=== PATIENT | male | born 1945 | race Caucasian/White ===

== ENCOUNTER 2019-03-07 06:00 | Outpatient (RCR) | payer MEDICARE, MEDICAID, SELFPAY | END 2019-04-06 00:01 | LOC: PULRHB 06:00 | PROVIDERS: Family Provider Family Medicine; Visit Provider Family Medicine | DX: J44.0 Chronic obstructive pulmonary disease with (acute) lower respiratory infection (principal); J20.9 Acute bronchitis, unspecified | CPT/HCPCS: G0424 ×9 ==

== ENCOUNTER 2019-04-07 06:00 | Outpatient (RCR) | payer MEDICARE, MEDICAID, SELFPAY | END 2019-05-07 23:59 | disposition home or self-care (01) | LOC: PULRHB 06:00 | PROVIDERS: Family Provider Family Medicine; Visit Provider Family Medicine | DX: J44.9 Chronic obstructive pulmonary disease, unspecified (principal) | CPT/HCPCS: G0424 ==

== ENCOUNTER 2019-04-30 13:56 | Emergency (ER) | payer MEDICARE, MEDICAID, SELFPAY ==
[2019-04-30 14:08] VITALS: BP 135/72; PULSE 87; RESP 20; TEMP 36.3; O2SAT 91; BMI 22.7
--- NOTE | 2019-04-30 15:12 | XRR_ITS ---
PROCEDURE INFORMATION: Exam: XR Lumbosacral Spine, 2 or 3 Views Exam date and time: 04/30/2019 3:43 PM Age: 74 years old Clinical indication: Injury or trauma; Fall; Initial encounter; Blunt trauma (contusions or hematomas); Injury date: This am; Additional info: Fall, multiple TECHNIQUE: Imaging protocol: XR of the lumbosacral spine, 2 or 3 views. COMPARISON: No relevant prior studies available. FINDINGS: Vertebrae: There is age indeterminate fracture of L1 involving the superior endplate. No retropulsed bone. Marked disc space narrowing and severe endplate degenerative changes are noted at L5-S1. There is a vacuum disc. Severe facet degenerative changes are noted in the lower lumbar spine. No subluxation. Soft tissues: Normal. XR/XR lumbar spine 2-3V* [id number] IMPRESSION: There is age indeterminate fracture of L1 involving the superior endplate. No retropulsed bone. CT scan may be helpful for further characterization.
--- NOTE | 2019-04-30 15:12 | XRR_ITS ---
PROCEDURE INFORMATION: Exam: XR Chest, 2 Views Exam date and time: 04/30/2019 3:41 PM Age: 74 years old Clinical indication: Shortness of breath; Additional info: SOB, copd TECHNIQUE: Imaging protocol: XR of the chest Views: 2 views. COMPARISON: CR Chest 1 [place] [id number] 03/06/2016 8:19 PM FINDINGS: Lungs: Unremarkable. No consolidation. The lungs are hyperinflated. Scattered punctate calcified granulomas are noted. Pleural space: Unremarkable. No pleural effusion. No pneumothorax. Heart/Mediastinum: Unremarkable. No cardiomegaly. Bones/joints: Unremarkable. Osteopenia and degenerative changes in the spine are noted. XR/XR chest 2V* [id number] IMPRESSION: No acute findings.
--- NOTE | 2019-04-30 15:13 | ECG_ITS ---
Measurements Intervals [place] Rate: 101 P: 81 VA: 158 QRS: 97 QRSD: 137 T: 86 QT: 355 QTc: 461 SINUS TACHYCARDIA WITH OCCASIONAL SUPRAVENTRICULAR PREMATURE COMPLEXES RIGHT BUNDLE BRANCH BLOCK [120+ ms QRS DURATION, UPRIGHT V1, 40+ ms S IN I/aVL/V4/V5/V6] INTERPRETATION BASED ON A DEFAULT AGE OF 40 YEARS Compared to ECG 03/06/2016 19:56:57 Indeterminate axis no longer present Electronically Signed On 04-30-2019 15:35:45 [employer] by Alivia Landaverde M.D. [email or web address]
--- NOTE | 2019-04-30 15:17 | CTR_ITS ---
PROCEDURE INFORMATION: Exam: CT Head Without Contrast Exam date and time: 04/30/2019 3:40 PM Age: 74 years old Clinical indication: Injury or trauma; Patient HX: Fall this a. M. Denies any blow to head or loc. ; Additional info: Falls TECHNIQUE: Imaging protocol: Computed tomography of the head without contrast. Total DLP: 780.27 mGy-cm Radiation optimization: All CT scans at this facility use at least one of these dose optimization techniques: automated exposure control; mA and/or kV adjustment per patient size (includes targeted exams where dose is matched to clinical indication); or iterative reconstruction. COMPARISON: [place] [id number] 03/05/2018 9:33 AM FINDINGS: Brain: There is diffuse volume loss and periventricular low-density compatible with small-vessel disease changes. No acute hemorrhage, edema or mass effect. Stable [id number] vascular calcifications at the skull base. Ventricles: Normal. No ventriculomegaly. Bones/joints: Unremarkable. No acute fracture. Sinuses: Mild mucosal thickening is noted in the sinuses. No air-fluid levels. Mastoid air cells: Visualized mastoid air cells are well aerated. Soft tissues: Unremarkable. CT/CT head wo con* [id number] IMPRESSION: No acute abnormality is identified. Radiation Dose CTDIVOL = (mGy): DLP = 780.27 (mGy-cm)
--- NOTE | 2019-04-30 15:17 | W.ED.FALL ---
Documented by User: SHAYNE Michael 04/30/19 17:08 HPI - Fall General: Chief Complaint: Fall Stated Complaint: fall Time Seen by Provider: 04/30/19 15:05 Source: patient Mode of arrival: ambulatory Limitations: no limitations History of Present Illness: HPI Narrative: Patient comes in today for complaints of 3 falls this morning. Patient reports getting up to go to the bathroom and became lightheaded and fell. Patient then was walking on the hallway and got lightheaded again and fell. Patient then mated to the bathroom and fell again. Patient has an area of bruising to his right forearm. No obvious abrasions or skin tears. Patient does report some low back pain. Patient states that when he fell he fell down directly on his buttocks. Patient denies any chest pain, more than usual shortness of breath. Patient does states he has felt bad the last 2 days and a little weaker than normal. Review of Systems General: Reports: 10 or more systems reviewed and unremarkable except in HPI and below Musc: Reports: back pain (low) Skin/Breast: Reports: changes in skin color (bruising to right forearm) Neuro: Reports: weakness in extremities PFSH ED PFSH: Statuses (acute, chronic, etc) shown below reflect problem list status as previously entered and may not be historically accurate Medical History (Updated 04/30/19 @ 21:14 by SULY Bernabe) COPD (chronic obstructive pulmonary disease) (Acute) Dyspnea (Acute) Hypoxia (Acute) Surgical History (Updated 04/21/19 @ 09:24 by Abi Sharma MD) H/O foot surgery (Acute) H/O rotator cuff surgery (Acute) Social History Smoking and tobacco status: current every day smoker cigarettes Years cigarettes smoked: 60 Alcohol intake: never Lives independently: Yes Current occupational status: retired History of recent travel: No Current gender identity: Male Physical Exam Const: COMMON NORMALS: no apparent distress and oriented x3 GENERAL APPEARANCE: cooperative HENMT: COMMON NORMALS: normocephalic, external ears normal, EAC's normal, TM's normal bilaterally and external nose normal HEAD & SCALP: normal to inspection and normocephalic FACE & SINUS: normal facial exam NOSE: external nose normal GENERAL EAR: hearing not grossly impaired EXTERNAL EAR: Yes external ears normal EXTERNAL AUDITORY CANAL: EAC's normal TYMPANIC MEMBRANE: TM's normal bilaterally MOUTH: oral and palatal mucosa normal THROAT: posterior oropharynx normal Eye: COMMON NORMALS: PERRL and EOMs intact bilaterally PUPIL: Yes PERRL Neck/C-Spine: COMMON NORMALS: full ROM and no lymphadenopathy Lymph: LYMPHATIC: no lymphedema noted Chest: COMMONS NORMALS: inspection of chest normal and palpation of chest normal Resp: COMMON NORMALS: normal respiratory effort and clear to auscultation bilaterally AUSCULTATION: clear to auscultation bilaterally Cardio: COMMON NORMALS: regular rate and regular rhythm RATE: regular rate RHYTHM: regular rhythm GI: COMMON NORMALS: normal to inspection, nondistended, normoactive bowel sounds and non-tender : COMMON NORMALS: Yes no CVA tenderness BLADDER/KIDNEY EXAM: Yes no CVA tenderness Back/Pelvis: COMMON NORMALS: no CVA tenderness LUMBAR SPINE/LOWER BACK: Yes paraspinal muscle tenderness Extremity: COMMON NORMALS: normal to inspection GENERAL: No edema RIGHT UPPER EXTREMITY: Yes lower arm (contusion) Neuro: COMMON NORMALS: oriented x3, moves all extremities and no focal motor deficits Psych: COMMON NORMALS: mental status grossly normal and cooperative Skin: COMMON NORMALS: no rashes or lesions noted GENERAL SKIN EXAM: no rashes or lesions noted Course ED course: 1699, reviewed with Rai SIDDIQUI, she has graciously agreed to assume care of patient on my leave. wjw Vital Signs: Vital signs: Vital Signs Temperature 97.4 F L 04/30/19 14:08 Pulse Rate 99 04/30/19 21:35 Respiratory Rate 22 H 04/30/19 21:35 Blood Pressure 129/81 04/30/19 21:35 Pulse Oximetry 94 04/30/19 21:35 MDM - Fall Lab Data: Labs: Lab Results 04/30/19 04/30/19 04/30/19 Range/Units 16:06 16:06 16:06 WBC 15.4 H (4.0-10.0) 10^3/ uL RBC 5.03 (4.1-5.3) 10^6/u L Hgb 14.8 (11.7-16.6) g/dL Hct 51.4 (42.0-52.0) % MCV 102.2 H (80-94) fL MCH 29.4 (28.0-34.0) pg MCHC 28.8 L (30.0-36.0) g/dL RDW 13.6 (12.1-15.1) % Plt Count 172 (130-400) 10^3/c mm MPV 9.2 (7.4-10.4) fL Neut % (Auto) 83.3 % Lymph % (Auto) 7.1 % [place] % (Auto) 8.1 % Eos % (Auto) 0.7 % Baso % (Auto) 0.3 % Neut # (Auto) 12.8 H (1.8-7.7) 10^3/u L Lymph # (Auto) 1.1 (0.8-4.8) 10^3/u L [place] # (Auto) 1.2 H (0.2-0.9) 10^3/u L Eos # (Auto) 0.1 (0.0-0.8) 10^3/u L Baso # (Auto) 0.0 (0.0-0.1) 10^3/u L Nucleated RBC % (a uto) 0 % Nucleated RBCs # 0.0 /100WBC D-Dimer (0-0.59) ug/mIFE U Sodium 142 (136-145) mmol/L Potassium 4.3 (3.5-5.1) mmol/L Chloride 95 L (98-107) mmol/L Carbon Dioxide 36 H (22-29) mmol/L Anion Gap 15.3 (5-19) BUN 18 (8-23) mg/dL Creatinine 0.8 (0.7-1.2) mg/dL Glucose 152 H (74-106) mg/dL Calcium 10.2 (8.5-10.5) mg/dL Total Bilirubin 0.3 (0.15-1.2) mg/dL AST 15 (0-40) U/L ALT 23 (0-41) U/L Alkaline Phosphata se 71 (40-130) IU/L Troponin T Baselin e 18 H (0-15) ng/mL Troponin T 120 Min kenaitze (0-15) ng/mL Delta Troponin T (0-10) ABS# Total Protein 6.9 (6.6-8.7) g/dL Albumin 4.0 (3.5-5.2) g/dL Globulin 2.9 (1.3-4.6) g/dL Urine Color (Yellow) Urine Appearance (CLEAR) Urine pH (5-7) Ur Specific Gravit y (1.005-1.030) Urine Protein (Negative) Urine Glucose (UA) (Normal) Urine Ketones (Negative) Urine Occult Blood (Negative) Urine Nitrate (Negative) Urine Bilirubin (NEGATIVE) Urine Urobilinogen (Negative) mg/dL Ur Leukocyte Francheska ase (Negative) Urine RBC (0-2) /hpf Urine WBC (0-5) /hpf Ur Squamous Epith Cells (0-5) Urine Bacteria (NONE) Hyaline Casts Urine Mucus 04/30/19 04/30/19 04/30/19 Range/Units 16:06 17:55 18:03 WBC (4.0-10.0) 10^3/ uL RBC (4.1-5.3) 10^6/u L Hgb (11.7-16.6) g/dL Hct (42.0-52.0) % MCV (80-94) fL MCH (28.0-34.0) pg MCHC (30.0-36.0) g/dL RDW (12.1-15.1) % Plt Count (130-400) 10^3/c mm MPV (7.4-10.4) fL Neut % (Auto) % Lymph % (Auto) % [place] % (Auto) % Eos % (Auto) % Baso % (Auto) % Neut # (Auto) (1.8-7.7) 10^3/u L Lymph # (Auto) (0.8-4.8) 10^3/u L [place] # (Auto) (0.2-0.9) 10^3/u L Eos # (Auto) (0.0-0.8) 10^3/u L Baso # (Auto) (0.0-0.1) 10^3/u L Nucleated RBC % (a uto) % Nucleated RBCs # /100WBC D-Dimer 5.15 H (0-0.59) ug/mIFE U Sodium (136-145) mmol/L Potassium (3.5-5.1) mmol/L Chloride (98-107) mmol/L Carbon Dioxide (22-29) mmol/L Anion Gap (5-19) BUN (8-23) mg/dL Creatinine (0.7-1.2) mg/dL Glucose (74-106) mg/dL Calcium (8.5-10.5) mg/dL Total Bilirubin (0.15-1.2) mg/dL AST (0-40) U/L ALT (0-41) U/L Alkaline Phosphata se (40-130) IU/L Troponin T Baselin e (0-15) ng/mL Troponin T 120 Min kenaitze 17.54 H (0-15) ng/mL Delta Troponin T -0.46 L (0-10) ABS# Total Protein (6.6-8.7) g/dL Albumin (3.5-5.2) g/dL Globulin (1.3-4.6) g/dL Urine Color Straw (Yellow) Urine Appearance Clear (CLEAR) Urine pH 5 (5-7) Ur Specific Gravit y 1.015 (1.005-1.030) Urine Protein Neg (Negative) Urine Glucose (UA) Norm (Normal) Urine Ketones Negative (Negative) Urine Occult Blood Trace H (Negative) Urine Nitrate Negative (Negative) Urine Bilirubin Neg (NEGATIVE) Urine Urobilinogen Norm (Negative) mg/dL Ur Leukocyte Francheska ase Negative (Negative) Urine RBC 5-10 H (0-2) /hpf Urine WBC 10-15 H (0-5) /hpf Ur Squamous Epith Cells 5-10 H (0-5) Urine Bacteria 1+ H (NONE) Hyaline Casts 0-4 H Urine Mucus 1+ Discharge Plan Discharge Patient Disposition: Home, Self-Care Clinical Impression: Closed compression fracture of L1 vertebra Qualifiers: Encounter type: initial encounter Qualified Code(s): S32.010A - Wedge compression fracture of first lumbar vertebra, initial encounter for closed fracture Closed wedge compression fracture of T10 vertebra Qualifiers: Encounter type: initial encounter Qualified Code(s): S22.070A - Wedge compression fracture of T9-T10 vertebra, initial encounter for closed fracture Fall Qualifiers: Encounter type: initial encounter Qualified Code(s): W19.XXXA - Unspecified fall, initial encounter Condition: Stable Prescriptions: No Action prednisone 5 mg tablet 5 - 10 mg PO DAILY RF: 0 albuterol sulfate 2.5 mg /3 mL (0.083 %) solution for nebulization 2.5 mg INHALATION QID PRN (Reason: Shortness Of Breath) RF: 0 Trelegy Ellipta 100-62.5-25 mcg blister with device 1 inh INHALATION Q24H RF: 0 levalbuterol tartrate [Xopenex HFA] 45 mcg/actuation HFA aerosol inhaler 2 inh INHALATION QID RF: 0 atorvastatin 20 mg tablet 20 mg PO DAILY RF: 0 celecoxib 200 mg capsule 200 mg PO DAILY PRN (Reason: Inflammation) RF: 0 clonazepam 1 mg tablet 0.5 - 1 mg PO BID PRN (Reason: Anxiety) RF: 0 finasteride 5 mg tablet 5 mg PO DAILY RF: 0 levothyroxine 75 mcg capsule 75 mcg PO DAILY RF: 0 tamsulosin 0.4 mg capsule 0.4 mg PO BID RF: 0 tizanidine 4 mg capsule 4 mg PO TID PRN (Reason: Muscle Spasm) RF: 0 hydrocodone-acetaminophen 10-325 mg tablet See Rx Instructions .ROUTE .COMPLEX PRN (Reason: Pain) RF: 0 meclizine 25 mg tablet 12.5 mg PO BID RF: 0 ondansetron HCl [Zofran] 4 mg tablet 4 mg PO Q4H PRN (Reason: Nausea) RF: 0 fluticasone propionate [Flonase Allergy Relief] 50 mcg/actuation spray,suspension 1 spray INTRANASAL BID RF: 0 azithromycin 250 mg Tablet See Rx Instructions .ROUTE .COMPLEX RF: 0 amitriptyline 25 mg Tablet See Rx Instructions .ROUTE .COMPLEX RF: 0 metoprolol tartrate 25 mg Tablet 12.5 mg PO BID RF: 0 Aspir-81 81 mg Tablet,Delayed Release (Dr/Ec) 81 mg PO DAILY RF: 0 Fish Oil 1,000 mg (120 mg-180 mg) Capsule 1 cap PO DAILY RF: 0 Discharge Orders: Discharge Order (Routine); Ordered 04/30/19 Ordered By: Jessy Chaudhary Referrals: Waldo Silvestre MD [Family Provider] - Jean Anderson APN [Primary Care Provider] - Discharge Diet: Usual diet Discharge Activity: Increase activity as tolerated Activity Restrictions/Additional Instructions: You may continue to take pain medications as needed or as directed for the back pain. As discussed we noticed compression fractures of your T10 and L1 vertebrae-unknown whether these are new or old fractures. Use a walker or a cane for assistance over the next 24 to 48 hours to prevent further falls. Please follow-up with your primary care provider early next week for reevaluation. Discharge Date/Time: 04/30/19 21:30 Sign Out Sign Out Data: Patient Sign Out occurred on 04/30/19 at 17:05. Patient's care was discussed, and care was transferred from Zac Mayers to SULY Bernabe. Sign Out Comment: waiting and further evaluation. wjw Last updated by Zac Mayers FNP at 04/30/19 17:01 Coding Level of Care Code ED Char Conveyor Tender for Chg Fwd Exam Problem Focused Documented by User: SULY Bernabe 04/30/19 22:00 HPI - Fall General: Chief Complaint: Fall Stated Complaint: fall Time Seen by Provider: 04/30/19 15:05 Source: patient and family Mode of arrival: ambulatory Limitations: no limitations History of Present Illness: HPI Narrative: Patient is a very nice 74-year-old male who presents to ED today along with family for complaints of 3 falls that occurred earlier this morning; patient tells me he fell initially when he was trying to get out of bed, again on his way to the bathroom, and again when he was in the bathroom; patient does not seem to be able to tell me why he fell; he denies lightheadedness, dizziness; he denies chest pain, shortness of breath, difficulty breathing, palpitations; he told the provider before myself that he did get a little lightheaded; patient and family states that since the event he has been at his baseline; he is chronic COPD normally on 3 L O2; he has not had to increase this and does not feel any shortness of breath apart from baseline; patient did complain of some lower back pain; plain films were performed which does show a mild L1 compression fracture; CXR and head CT from previous provider were negative MD complaint: fall Onset (ago): hour(s) Fall from: standing Place fall occurred: home Loss of consciousness: None Prolonged down time: no Associated symptoms-after fall: Denies abdominal pain, chest pain, headache(s), lightheadedness or neck pain Review of Systems Const: Denies: fever, chills, body aches, change in appetite, fatigue, malaise or night sweats Card: Denies: chest pain, palpitations, irregular heart rhythm, edema, swelling of feet/ankles, lightheadedness, syncope, pre-syncope, shortness of breath on exertion or shortness of breath when lying down Resp: Reports: other (no more than his COPD baseline); Denies: shortness of breath, productive cough, non-productive cough, wheezing, stridor, pain on inspiration, change in phlegm color, coughing up blood or chest congestion GI: Denies: abdominal pain, nausea, vomiting or diarrhea : Denies: flank pain, difficulty urinating or painful urination Musc: Reports: back pain; Denies: neck pain, extremity pain, extremity swelling, joint pain or joint swelling Skin/Breast: Denies: rash Neuro: Denies: headache, numbness in extremities, weakness in extremities or changes in sensation PFSH ED PFSH: Statuses (acute, chronic, etc) shown below reflect problem list status as previously entered and may not be historically accurate Medical History (Updated 04/30/19 @ 21:14 by SULY Bernabe) COPD (chronic obstructive pulmonary disease) (Acute) Dyspnea (Acute) Hypoxia (Acute) Surgical History (Updated 04/21/19 @ 09:24 by Abi Sahrma MD) H/O foot surgery (Acute) H/O rotator cuff surgery (Acute) Social History Smoking and tobacco status: current every day smoker cigarettes Years cigarettes smoked: 60 Alcohol intake: never Lives independently: Yes Current occupational status: retired History of recent travel: No Current gender identity: Male Course Vital Signs: Vital signs: Vital Signs Temperature 97.4 F L 04/30/19 14:08 Pulse Rate 99 04/30/19 21:35 Respiratory Rate 22 H 04/30/19 21:35 Blood Pressure 129/81 04/30/19 21:35 Pulse Oximetry 94 04/30/19 21:35 MDM - Fall MDM Narrative: Medical decision making narrative: Patient's EKGs show no acute changes; patient's delta trop is negative; again CXR and head CT are negative; he does have an L1 compression fracture; patient has been mildly tachycardic throughout his stay and given previous provider history of lightheadedness I did elect to perform a d-dimer which was elevated at slightly over 5; spoke with patient about going ahead and obtaining a CTA which him and family would like to proceed with no PE present on CTA; radiologist did comment on T10 fracture (pt isn't having any pain here); patient has been up and ambulated here w/o difficulty; we continued to watch his O2 with ambulation and he stayed anywhere from 93%-97% which he states is normal; pt feels comfortable going home and family does as well; return to ED precautions given; otherwise followup with PCP early next week for re-evaluation Lab Data: Labs: Lab Results 04/30/19 04/30/19 04/30/19 Range/Units 16:06 16:06 16:06 WBC 15.4 H (4.0-10.0) 10^3/ uL RBC 5.03 (4.1-5.3) 10^6/u L Hgb 14.8 (11.7-16.6) g/dL Hct 51.4 (42.0-52.0) % MCV 102.2 H (80-94) fL MCH 29.4 (28.0-34.0) pg MCHC 28.8 L (30.0-36.0) g/dL RDW 13.6 (12.1-15.1) % Plt Count 172 (130-400) 10^3/c mm MPV 9.2 (7.4-10.4) fL Neut % (Auto) 83.3 % Lymph % (Auto) 7.1 % [place] % (Auto) 8.1 % Eos % (Auto) 0.7 % Baso % (Auto) 0.3 % Neut # (Auto) 12.8 H (1.8-7.7) 10^3/u L Lymph # (Auto) 1.1 (0.8-4.8) 10^3/u L [place] # (Auto) 1.2 H (0.2-0.9) 10^3/u L Eos # (Auto) 0.1 (0.0-0.8) 10^3/u L Baso # (Auto) 0.0 (0.0-0.1) 10^3/u L Nucleated RBC % (a uto) 0 % Nucleated RBCs # 0.0 /100WBC D-Dimer (0-0.59) ug/mIFE U Sodium 142 (136-145) mmol/L Potassium 4.3 (3.5-5.1) mmol/L Chloride 95 L (98-107) mmol/L Carbon Dioxide 36 H (22-29) mmol/L Anion Gap 15.3 (5-19) BUN 18 (8-23) mg/dL Creatinine 0.8 (0.7-1.2) mg/dL Glucose 152 H (74-106) mg/dL Calcium 10.2 (8.5-10.5) mg/dL Total Bilirubin 0.3 (0.15-1.2) mg/dL AST 15 (0-40) U/L ALT 23 (0-41) U/L Alkaline Phosphata se 71 (40-130) IU/L Troponin T Baselin e 18 H (0-15) ng/mL Troponin T 120 Min kenaitze (0-15) ng/mL Delta Troponin T (0-10) ABS# Total Protein 6.9 (6.6-8.7) g/dL Albumin 4.0 (3.5-5.2) g/dL Globulin 2.9 (1.3-4.6) g/dL Urine Color (Yellow) Urine Appearance (CLEAR) Urine pH (5-7) Ur Specific Gravit y (1.005-1.030) Urine Protein (Negative) Urine Glucose (UA) (Normal) Urine Ketones (Negative) Urine Occult Blood (Negative) Urine Nitrate (Negative) Urine Bilirubin (NEGATIVE) Urine Urobilinogen (Negative) mg/dL Ur Leukocyte Francheska ase (Negative) Urine RBC (0-2) /hpf Urine WBC (0-5) /hpf Ur Squamous Epith Cells (0-5) Urine Bacteria (NONE) Hyaline Casts Urine Mucus 04/30/19 04/30/19 04/30/19 Range/Units 16:06 17:55 18:03 WBC (4.0-10.0) 10^3/ uL RBC (4.1-5.3) 10^6/u L Hgb (11.7-16.6) g/dL Hct (42.0-52.0) % MCV (80-94) fL MCH (28.0-34.0) pg MCHC (30.0-36.0) g/dL RDW (12.1-15.1) % Plt Count (130-400) 10^3/c mm MPV (7.4-10.4) fL Neut % (Auto) % Lymph % (Auto) % [place] % (Auto) % Eos % (Auto) % Baso % (Auto) % Neut # (Auto) (1.8-7.7) 10^3/u L Lymph # (Auto) (0.8-4.8) 10^3/u L [place] # (Auto) (0.2-0.9) 10^3/u L Eos # (Auto) (0.0-0.8) 10^3/u L Baso # (Auto) (0.0-0.1) 10^3/u L Nucleated RBC % (a uto) % Nucleated RBCs # /100WBC D-Dimer 5.15 H (0-0.59) ug/mIFE U Sodium (136-145) mmol/L Potassium (3.5-5.1) mmol/L Chloride (98-107) mmol/L Carbon Dioxide (22-29) mmol/L Anion Gap (5-19) BUN (8-23) mg/dL Creatinine (0.7-1.2) mg/dL Glucose (74-106) mg/dL Calcium (8.5-10.5) mg/dL Total Bilirubin (0.15-1.2) mg/dL AST (0-40) U/L ALT (0-41) U/L Alkaline Phosphata se (40-130) IU/L Troponin T Baselin e (0-15) ng/mL Troponin T 120 Min kenaitze 17.54 H (0-15) ng/mL Delta Troponin T -0.46 L (0-10) ABS# Total Protein (6.6-8.7) g/dL Albumin (3.5-5.2) g/dL Globulin (1.3-4.6) g/dL Urine Color Straw (Yellow) Urine Appearance Clear (CLEAR) Urine pH 5 (5-7) Ur Specific Gravit y 1.015 (1.005-1.030) Urine Protein Neg (Negative) Urine Glucose (UA) Norm (Normal) Urine Ketones Negative (Negative) Urine Occult Blood Trace H (Negative) Urine Nitrate Negative (Negative) Urine Bilirubin Neg (NEGATIVE) Urine Urobilinogen Norm (Negative) mg/dL Ur Leukocyte Francheska ase Negative (Negative) Urine RBC 5-10 H (0-2) /hpf Urine WBC 10-15 H (0-5) /hpf Ur Squamous Epith Cells 5-10 H (0-5) Urine Bacteria 1+ H (NONE) Hyaline Casts 0-4 H Urine Mucus 1+ Discharge Plan Discharge Patient Disposition: Home, Self-Care Clinical Impression: Closed compression fracture of L1 vertebra Qualifiers: Encounter type: initial encounter Qualified Code(s): S32.010A - Wedge compression fracture of first lumbar vertebra, initial encounter for closed fracture Closed wedge compression fracture of T10 vertebra Qualifiers: Encounter type: initial encounter Qualified Code(s): S22.070A - Wedge compression fracture of T9-T10 vertebra, initial encounter for closed fracture Fall Qualifiers: Encounter type: initial encounter Qualified Code(s): W19.XXXA - Unspecified fall, initial encounter Condition: Stable Prescriptions: No Action prednisone 5 mg tablet 5 - 10 mg PO DAILY RF: 0 albuterol sulfate 2.5 mg /3 mL (0.083 %) solution for nebulization 2.5 mg INHALATION QID PRN (Reason: Shortness Of Breath) RF: 0 Trelegy Ellipta 100-62.5-25 mcg blister with device 1 inh INHALATION Q24H RF: 0 levalbuterol tartrate [Xopenex HFA] 45 mcg/actuation HFA aerosol inhaler 2 inh INHALATION QID RF: 0 atorvastatin 20 mg tablet 20 mg PO DAILY RF: 0 celecoxib 200 mg capsule 200 mg PO DAILY PRN (Reason: Inflammation) RF: 0 clonazepam 1 mg tablet 0.5 - 1 mg PO BID PRN (Reason: Anxiety) RF: 0 finasteride 5 mg tablet 5 mg PO DAILY RF: 0 levothyroxine 75 mcg capsule 75 mcg PO DAILY RF: 0 tamsulosin 0.4 mg capsule 0.4 mg PO BID RF: 0 tizanidine 4 mg capsule 4 mg PO TID PRN (Reason: Muscle Spasm) RF: 0 hydrocodone-acetaminophen 10-325 mg tablet See Rx Instructions .ROUTE .COMPLEX PRN (Reason: Pain) RF: 0 meclizine 25 mg tablet 12.5 mg PO BID RF: 0 ondansetron HCl [Zofran] 4 mg tablet 4 mg PO Q4H PRN (Reason: Nausea) RF: 0 fluticasone propionate [Flonase Allergy Relief] 50 mcg/actuation spray,suspension 1 spray INTRANASAL BID RF: 0 azithromycin 250 mg Tablet See Rx Instructions .ROUTE .COMPLEX RF: 0 amitriptyline 25 mg Tablet See Rx Instructions .ROUTE .COMPLEX RF: 0 metoprolol tartrate 25 mg Tablet 12.5 mg PO BID RF: 0 Aspir-81 81 mg Tablet,Delayed Release (Dr/Ec) 81 mg PO DAILY RF: 0 Fish Oil 1,000 mg (120 mg-180 mg) Capsule 1 cap PO DAILY RF: 0 Discharge Orders: Discharge Order (Routine); Ordered 04/30/19 Ordered By: Jessy Chaudhary Referrals: Waldo Silvestre MD [Family Provider] - Jean Anderson APN [Primary Care Provider] - Discharge Diet: Usual diet Discharge Activity: Increase activity as tolerated Activity Restrictions/Additional Instructions: You may continue to take pain medications as needed or as directed for the back pain. As discussed we noticed compression fractures of your T10 and L1 vertebrae-unknown whether these are new or old fractures. Use a walker or a cane for assistance over the next 24 to 48 hours to prevent further falls. Please follow-up with your primary care provider early next week for reevaluation. Discharge Date/Time: 04/30/19 21:30 Sign Out Sign Out Data: Patient Sign Out occurred on 04/30/19 at 17:05. Patient's care was discussed, and care was transferred from Zac Mayers to SULY Bernabe. Sign Out Comment: waiting and further evaluation. wjw Last updated by Zac Mayers FNP at 04/30/19 17:01 Coding Level of Care Code ED Char Conveyor Tender for Chg Fwd Exam Problem Focused
[2019-04-30 16:16] LABS: Basophils % 0.3 %; Eosinophils # 0.1 10^3/uL (0.0-0.8); Eosinophils % 0.7 %; Hematocrit 51.4 % (42.0-52.0); Hemoglobin 14.8 g/dL (11.7-16.6); Lymphocytes # 1.1 10^3/uL (0.8-4.8); Lymphocytes % 7.1 %; Mean Corpuscular HGB Conc 28.8 g/dL (30.0-36.0); Mean Corpuscular Hemoglobin 29.4 pg (28.0-34.0); Mean Corpuscular Volume 102.2 fL (80-94); Mean Platelet Volume 9.2 fL (7.4-10.4); Monocytes # 1.2 10^3/uL (0.2-0.9); Monocytes % 8.1 %; Neutrophils # 12.8 10^3/uL (1.8-7.7); Neutrophils % 83.3 %; Nucleated Red Blood Cells % 0 %; Platelet Count 172 10^3/cmm (130-400); Red Blood Count 5.03 10^6/uL (4.1-5.3); Red Cell Distribution Width 13.6 % (12.1-15.1); White Blood Count 15.4 10^3/uL (4.0-10.0)
[2019-04-30 16:45] LABS: Alanine Aminotransferase 23 U/L (0-41); Alkaline Phosphatase 71 IU/L (40-130); Anion Gap 15.3 (5-19); Aspartate Amino Transferase 15 U/L (0-40); Blood Urea Nitrogen 18 mg/dL (8-23); Calcium 10.2 mg/dL (8.5-10.5); Carbon Dioxide 36 mmol/L (22-29); Chloride 95 mmol/L (98-107); Globulin 2.9 g/dL (1.3-4.6); Glucose 152 mg/dL (74-106); Potassium 4.3 mmol/L (3.5-5.1); Sodium 142 mmol/L (136-145); Total Bilirubin 0.3 mg/dL (0.15-1.2); Total Protein 6.9 g/dL (6.6-8.7); Troponin(5th) Baseline 18 ng/mL (0-15)
[2019-04-30 17:12] VITALS: PULSE 116; RESP 20; O2SAT 96
[2019-04-30] MEDS: ipratropium-albuterol 3 mL Neb INHALATION (17:12)
[2019-04-30 17:20] VITALS: PULSE 106
[2019-04-30 18:35] LABS: Troponin 5 2HR 17.54 ng/mL (0-15)
[2019-04-30 18:40] LABS: Troponin 5 2HR Delta -0.46 ABS# (0-10)
[2019-04-30 18:42] LABS: D Dimer 5.15 ug/mIFEU (0-0.59)
--- NOTE | 2019-04-30 19:00 | CTR_ITS ---
PROCEDURE INFORMATION: Exam: CT Angiography Chest With Contrast Exam date and time: 04/30/2019 7:16 PM Age: 74 years old Clinical indication: Injury or trauma; Fall; Initial encounter; Blunt trauma (contusions or hematomas); Additional info: Dizziness/fall; Tachy TECHNIQUE: Imaging protocol: Computed tomographic angiography of the chest with intravenous contrast. 3D rendering: MIP and/or 3D reconstructed images were created by the technologist. Total DLP: 629.17 mGy-cm Radiation optimization: All CT scans at this facility use at least one of these dose optimization techniques: automated exposure control; mA and/or kV adjustment per patient size (includes targeted exams where dose is matched to clinical indication); or iterative reconstruction. Contrast material: OMNI 350; Contrast volume: 95 ml; Contrast route: IV; COMPARISON: CT chest w con* [id number] 03/17/2019 10:20 AM FINDINGS: Pulmonary arteries: There is no pulmonary embolus. Aorta: Moderate atherosclerotic changes are noted in the aorta. No aneurysm or dissection. Lungs: There is severe emphysematous changes. There is bibasilar bronchiectasis. There is mucous plugging especially in the medial right lower lobe. There is a calcified granuloma right upper lobe. Pleural space: Unremarkable. No pneumothorax. No pleural effusion. Heart: Unremarkable. No cardiomegaly. No pericardial effusion. Mediastinum: A small hiatal hernia is present. Spleen: Calcified splenic granulomata are noted. Kidneys and ureters: A fluid density cyst mid to lower pole left kidney with a eccentric calcification is noted not included on the prior study. This measures about 4.7 cm in size. Lymph nodes: Unremarkable. No enlarged lymph nodes. Bones/joints: There is an acute fracture of the anterior column of T10 no retropulsed bone and no involvement of the posterior elements. Chronic appearing mild anterior wedging fracture deformity and Schmorl's node of T11 is unchanged since the prior. Soft tissues: Unremarkable. Other findings: Previous exam demonstrated probable flash filling hemangiomas that are not opacified on this exam. CT/CT angio chest PE protcl [id number] IMPRESSION: 1. There is no pulmonary embolus. Thoracic aorta is intact. 2. Emphysematous changes, bronchiectasis and mild mucous plugging are noted. 3. New fracture involving the anterior superior endplate/anterior column of T10 with anterior wedging deformity but no retropulsed bone. 4. Chronic fracture deformity of T11 is also noted. Radiation Dose CTDIVOL = (mGy): DLP = 629.17 (mGy-cm)
[2019-04-30 19:16] LABS: Bilirubin Urine Neg (NEGATIVE); Blood Urine Trace (Negative); Glucose Urine UA Norm (Normal); Ketones Urine Negative (Negative); Leukocyte Esterase Urine Negative (Negative); Nitrate Urine Negative (Negative); Protein Urine Neg (Negative); Specific Gravity, Urine 1.015 (1.005-1.030); Urine Appearance Clear (CLEAR); Urine Color Straw (Yellow); Urobilinogen Urine Norm (Negative); pH Urine 5 (5-7)
[2019-04-30 19:18] LABS: Hyaline Casts Urine 0-4; Mucus Urine 1+
[2019-04-30 19:19] LABS: Add Urine Culture? No; Bacteria Urine 1+
--- NOTE | 2019-04-30 21:13 | ECG_ITS ---
Measurements Intervals [place] Rate: 106 P: 82 PA: 166 QRS: 95 QRSD: 133 T: 76 QT: 357 QTc: 474 SINUS TACHYCARDIA WITH OCCASIONAL VENTRICULAR PREMATURE COMPLEXES WITH FREQUENT SUPRAVENTRICULAR PREMATURE COMPLEXES RIGHT BUNDLE BRANCH BLOCK [120+ ms QRS DURATION, UPRIGHT V1, 40+ ms S IN I/aVL/V4/V5/V6] Compared to ECG 04/30/2019 14:12:10 Ventricular premature complex(es) now present Electronically Signed On 05-01-2019 18:02:21 ENDOCRINOLOGY SPECIALIST by Darius Sainz M.D. [id number]
[2019-04-30 21:35] VITALS: BP 129/81; PULSE 99; RESP 22; O2SAT 94
== END 2019-04-30 21:30 | disposition home or self-care (01) ==
PROVIDERS: Physician Assistant; Emergency Provider Nurse Practitioner Family; Family Provider Family Medicine; PCP Nurse Practitioner Family
DX: S32.010A Wedge compression fracture of first lumbar vertebra, initial encounter for closed fracture (principal); S22.070A Wedge compression fracture of T9-T10 vertebra, initial encounter for closed fracture; Z79.82 Long term (current) use of aspirin; W19.XXXA Unspecified fall, initial encounter; J44.9 Chronic obstructive pulmonary disease, unspecified; F17.210 Nicotine dependence, cigarettes, uncomplicated
CPT/HCPCS: 36415; 70450; 71046; 71275; 72100; 80053; 81001; 84484; 85025; 85378; 93005; 94640; 99281; A9270; Q9967

== ENCOUNTER 2019-05-02 13:00 | Inpatient (IN) | payer MEDICARE, MEDICAID, SELFPAY ==
[2019-05-02] VITALS (18 sets, daily range): BP systolic 119–141; BP diastolic 74–86; PULSE 67–121; RESP 19–38; TEMP 36.4; O2SAT 89–97; BMI 22.7
--- NOTE | 2019-05-02 13:18 | ED_ITS ---
Entered by Jason Avery, acting as scribe for Geetha Fields HPI - SOB/Dyspnea General: Chief Complaint: Shortness of Breath/Dyspnea Stated Complaint: sob/fall Time Seen by Provider: 05/02/19 13:25 History of Present Illness: HPI Narrative: 74 yo male presents with shortness of breath. Pt has fallen frequently in the past 2 days. Pt has been urinating on random things. Pt isn't acting himself for the past few days. Pt is on 3 liters of o2 at all times. History is limited secondary to patient's shortness of breath. He has obvious signs of respiratory distress present. MD elicited complaint: shortness of breath Pertinent past history: COPD Onset (ago): day(s) (2) Severity: moderate Exacerbating factors: lying flat and exertion Relieving factors: oxygen and upright position Known history of: COPD Associated symptoms: Deny abdominal pain, chest pain, diaphoresis, dizziness, extremity pain, fever(s), nausea, orthopnea, palpitations, polydipsia, syncope or vomiting Treatment prior to arrival: oxygen and other (breathing treatments.) Review of Systems General: Reports: other (negative unless marked) Const: Denies: fever, chills, body aches, fatigue, malaise or diaphoresis Eyes: Denies: change in vision or blurry vision ENMT: Denies: throat pain, painful swallowing, hoarseness, ear pain, ear dis charge, Change in hearing or nasal discharge Card: Denies: chest pain, palpitations, irregular heart rhythm, syncope, pre- syncope, shortness of breath on exertion or shortness of breath when lying down Resp: Reports: shortness of breath, non-productive cough and wheezing GI: Denies: abdominal pain, nausea, vomiting, vomiting blood, coffee grounds in vomit, diarrhea, constipation, cramping, blood in stool or black tarry stool : Denies: flank pain, difficulty urinating, painful urination, urinary frequency, urinary urgency, decreased urine ouput, urinary incontinence or blood in urine Musc: Denies: neck pain, back pain, extremity pain, extremity swelling, joint pain, joint swelling, joint warmth or joint stiffness Skin/Breast: Denies: rash, skin tenderness or yellow skin Neuro: Denies: headache, numbness in extremities, weakness in extremities, changes in sensation, lack of coordination, difficulty walking, dizziness, vertigo or confusion Endo: Denies: excessive thirst, tired all the time, cold intolerance, excessive sweating, flushing or hot flashes Sharath/Lymph: Denies: easy bruising, easy bleeding, petechiae or enlarged lymph nodes All/Imm: Denies: hives, throat swelling, tongue swelling, facial swelling or acute wheezing PFSH ED PFSH: Statuses (acute, chronic, etc) shown below reflect problem list status as previously entered and may not be historically accurate Medical History COPD (chronic obstructive pulmonary disease) (Acute) Dyspnea (Acute) Hypoxia (Acute) Surgical History H/O foot surgery (Acute) H/O rotator cuff surgery (Acute) Family History Other CAD (coronary artery disease) Diabetes Stroke Social History Smoking and tobacco status: current every day smoker cigarettes Years cigarettes smoked: 60 Alcohol intake: never Lives independently: Yes Current occupational status: retired History of recent travel: No Current gender identity: Male Physical Exam Const: COMMON NORMALS: oriented x3, no limitations, healthy appearing and well nourished; apparent distress EXAM LIMITATIONS: no altered mental status GENERAL APPEARANCE: cooperative, well kempt and well developed ORIENTATION/CONSCIOUSNESS: Yes awake HENMT: COMMON NORMALS: normocephalic, head/scalp atraumatic, hearing grossly normal bilaterally, external ears normal, EAC's normal, external nose normal and moist oral mucous membranes HEAD & SCALP: normal to inspection, normocephalic and atraumatic FACE & SINUS: normal facial exam and face symmetric NOSE: external nose normal and nares normal EXTERNAL EAR: Yes external ears normal EXTERNAL AUDITORY CANAL: EAC's normal MOUTH: oral and palatal mucosa normal and tongue normal Eye: COMMON NORMALS: PERRL, EOMs intact bilaterally, conjunctivae normal and no scleral icterus GENERAL EYE: normal appearance of both eyes and normal light reflex CONJUNCTIVA: Yes conjunctivae normal SCLERA: sclerae normal CORNEA: Yes corneas normal PUPIL: Yes PERRL DIRECT OPHTHALMOSCOPY: Yes normal light reflex Neck/C-Spine: COMMON NORMALS: full ROM, no lymphadenopathy, supple, no meningeal signs and no JVD GENERAL: Yes normal visual inspection and Yes trachea midline CERVICAL SPINE: Yes cervical ROM normal Chest: COMMONS NORMALS: inspection of chest normal and palpation of chest normal Resp: EFFORT & INSPECTION: Yes able to speak in complete sentences, Yes tachypneic, Yes retractions and Yes uses accessory muscles AUSCULTATION: rhonchi and wheezes Cardio: COMMON NORMALS: no JVD, regular rate, regular rhythm, S1 normal heart sound, S2 normal heart sound, no gallops, no clicks, no murmurs and no rub JUGULAR VENOUS DISTENTION: no JVD RATE: regular rate RHYTHM: regular rhythm HEART SOUNDS: S1 normal and S2 normal GI: COMMON NORMALS: soft to palpation, non-tender, no hepatosplenomegaly and no masses INSPECTION: Yes normal to inspection PALPATION: Yes soft and Yes no hepatosplenomegaly : COMMON NORMALS: Yes no CVA tenderness BLADDER/KIDNEY EXAM: Yes no CVA tenderness Back/Pelvis: COMMON NORMALS: no CVA tenderness, thoracic and lumbar spine normal to inspection, no thoracic nor lumbar tenderness and thoraco-lumbar ROM normal Extremity: COMMON NORMALS: normal to inspection, full ROM, normal capillary refill, no joint enlargement, no clubbing, cyanosis or edema and no calf tenderness Neuro: COMMON NORMALS: oriented x3, CN's II-XII intact bilaterally, moves all extremities, no focal motor deficits and no sensory deficits noted MENINGEAL SIGNS: Yes no meningeal signs Psych: COMMON NORMALS: mental status grossly normal, thought process normal, cooperative, affect normal, speech normal and activity/motor behavior normal APPEARANCE: Yes well kempt SPEECH: Yes normal speech THOUGHT PROCESS: normal thought process Skin: COMMON NORMALS: no rashes or lesions noted, skin turgor normal, no jaundice, no petechiae and no mottling GENERAL SKIN EXAM: no rashes or lesions noted and turgor normal Course Vital Signs: Vital signs: Vital Signs Pulse Rate 121 H 05/02/19 14:00 Respiratory Rate 38 H 05/02/19 14:00 Blood Pressure 137/86 05/02/19 13:09 Pulse Oximetry 93 05/02/19 14:00 MDM - SOB/Dyspnea MDM Narrative: Medical decision making narrative: Marko is a 74-year-old male who comes in shortness of breath and respiratory distress. He is doing much better on BiPAP now but was in severe distress upon arrival. He had frequent falls recently. Patient be admitted to the hospital under the care of Dr. Dave. Lab Data: Attestation: I reviewed the patient's lab results. Labs: Lab Results 05/02/19 05/02/19 05/02/19 Range/Units 13:28 13:44 13:53 WBC 12.3 H (4.0-10.0) 10^3/ uL RBC 4.87 (4.1-5.3) 10^6/u L Hgb 13.9 (11.7-16.6) g/dL Hct 48.2 (42.0-52.0) % MCV 99.0 H (80-94) fL MCH 28.5 (28.0-34.0) pg MCHC 28.8 L (30.0-36.0) g/dL RDW 13.2 (12.1-15.1) % Plt Count 172 (130-400) 10^3/c mm MPV 9.4 (7.4-10.4) fL Neut % (Auto) 76.8 % Lymph % (Auto) 10.7 % [place] % (Auto) 10.4 % Eos % (Auto) 1.5 % Baso % (Auto) 0.2 % Neut # (Auto) 9.4 H (1.8-7.7) 10^3/u L Lymph # (Auto) 1.3 (0.8-4.8) 10^3/u L [place] # (Auto) 1.3 H (0.2-0.9) 10^3/u L Eos # (Auto) 0.2 (0.0-0.8) 10^3/u L Baso # (Auto) 0.0 (0.0-0.1) 10^3/u L Nucleated RBC % (a uto) 0 % Nucleated RBCs # 0.0 /100WBC PT (10.5-13.3) SECO NDS INR (0.8-1.2) Specimen Type Arterial Sample Site Brachial, left ABG pH 7.29 L (7.35-7.45) ABG pCO2 89.9 H* (35-45) mmHg ABG pO2 111.0 H (80.0-100.0) mmH g ABG HCO3 43.3 H (22-26) mmol/L ABG Base Excess 12.4 H (-2.0-2.0) mmol/ L Donnie Test Pos Hematocrit 43.7 (42-52) % O2 Delivery Device Nc O2 Liters/Min 3.0 % FiO2 % Body Press Operator ID [email or web address] Sodium (136-145) mmol/L Potassium (3.5-5.1) mmol/L Chloride (98-107) mmol/L Carbon Dioxide (22-29) mmol/L Anion Gap (5-19) BUN (8-23) mg/dL Creatinine (0.7-1.2) mg/dL Glucose (74-106) mg/dL Lactic Acid (0.5-2.2) mmol/L Calcium (8.5-10.5) mg/dL Magnesium (1.7-2.3) mg/dL Total Bilirubin (0.15-1.2) mg/dL AST (0-40) U/L ALT (0-41) U/L Alkaline Phosphata se (40-130) IU/L Troponin T Baselin e (0-15) ng/mL NT-Pro-B Natriuret Pep (0-450) pg/mL Total Protein (6.6-8.7) g/dL Albumin (3.5-5.2) g/dL Globulin (1.3-4.6) g/dL Urine Color (Yellow) Urine Appearance (CLEAR) Urine pH (5-7) Ur Specific Gravit y (1.005-1.030) Urine Protein (Negative) Urine Glucose (UA) (Normal) Urine Ketones (Negative) Urine Occult Blood (Negative) Urine Nitrate (Negative) Urine Bilirubin (NEGATIVE) Urine Urobilinogen (Negative) mg/dL Ur Leukocyte Francheska ase (Negative) Urine RBC (0-2) /hpf Urine WBC (0-5) /hpf Ur Squamous Epith Cells (0-5) Urine Bacteria (NONE) Urine Mucus Influenza Type A A g Negative (Negative) POC Influenza B Ag Negative (Negative) 05/02/19 05/02/19 05/02/19 Range/Units 13:53 13:53 13:53 WBC (4.0-10.0) 10^3/ uL RBC (4.1-5.3) 10^6/u L Hgb (11.7-16.6) g/dL Hct (42.0-52.0) % MCV (80-94) fL MCH (28.0-34.0) pg MCHC (30.0-36.0) g/dL RDW (12.1-15.1) % Plt Count (130-400) 10^3/c mm MPV (7.4-10.4) fL Neut % (Auto) % Lymph % (Auto) % [place] % (Auto) % Eos % (Auto) % Baso % (Auto) % Neut # (Auto) (1.8-7.7) 10^3/u L Lymph # (Auto) (0.8-4.8) 10^3/u L [place] # (Auto) (0.2-0.9) 10^3/u L Eos # (Auto) (0.0-0.8) 10^3/u L Baso # (Auto) (0.0-0.1) 10^3/u L Nucleated RBC % (a uto) % Nucleated RBCs # /100WBC PT 12.80 (10.5-13.3) SECO NDS INR 0.94 (0.8-1.2) Specimen Type Sample Site ABG pH (7.35-7.45) ABG pCO2 (35-45) mmHg ABG pO2 (80.0-100.0) mmH g ABG HCO3 (22-26) mmol/L ABG Base Excess (-2.0-2.0) mmol/ L Donnie Test Hematocrit (42-52) % O2 Delivery Device O2 Liters/Min % FiO2 % Body Press Operator ID Sodium 140 (136-145) mmol/L Potassium 4.8 (3.5-5.1) mmol/L Chloride 93 L (98-107) mmol/L Carbon Dioxide 36 H (22-29) mmol/L Anion Gap 15.8 (5-19) BUN 18 (8-23) mg/dL Creatinine 0.7 (0.7-1.2) mg/dL Glucose 180 H (74-106) mg/dL Lactic Acid (0.5-2.2) mmol/L Calcium 9.5 (8.5-10.5) mg/dL Magnesium 2.2 (1.7-2.3) mg/dL Total Bilirubin 0.4 (0.15-1.2) mg/dL AST 13 (0-40) U/L ALT 18 (0-41) U/L Alkaline Phosphata se 71 (40-130) IU/L Troponin T Baselin e 22 H (0-15) ng/mL NT-Pro-B Natriuret Pep 121 (0-450) pg/mL Total Protein 7.1 (6.6-8.7) g/dL Albumin 3.8 (3.5-5.2) g/dL Globulin 3.3 (1.3-4.6) g/dL Urine Color (Yellow) Urine Appearance (CLEAR) Urine pH (5-7) Ur Specific Gravit y (1.005-1.030) Urine Protein (Negative) Urine Glucose (UA) (Normal) Urine Ketones (Negative) Urine Occult Blood (Negative) Urine Nitrate (Negative) Urine Bilirubin (NEGATIVE) Urine Urobilinogen (Negative) mg/dL Ur Leukocyte Francheska ase (Negative) Urine RBC (0-2) /hpf Urine WBC (0-5) /hpf Ur Squamous Epith Cells (0-5) Urine Bacteria (NONE) Urine Mucus Influenza Type A A g (Negative) POC Influenza B Ag (Negative) 05/02/19 05/02/19 05/02/19 Range/Units 14:00 15:07 15:43 WBC (4.0-10.0) 10^3/ uL RBC (4.1-5.3) 10^6/u L Hgb (11.7-16.6) g/dL Hct (42.0-52.0) % MCV (80-94) fL MCH (28.0-34.0) pg MCHC (30.0-36.0) g/dL RDW (12.1-15.1) % Plt Count (130-400) 10^3/c mm MPV (7.4-10.4) fL Neut % (Auto) % Lymph % (Auto) % [place] % (Auto) % Eos % (Auto) % Baso % (Auto) % Neut # (Auto) (1.8-7.7) 10^3/u L Lymph # (Auto) (0.8-4.8) 10^3/u L [place] # (Auto) (0.2-0.9) 10^3/u L Eos # (Auto) (0.0-0.8) 10^3/u L Baso # (Auto) (0.0-0.1) 10^3/u L Nucleated RBC % (a uto) % Nucleated RBCs # /100WBC PT (10.5-13.3) SECO NDS INR (0.8-1.2) Specimen Type Arterial Sample Site Radial, left ABG pH 7.39 (7.35-7.45) ABG pCO2 69.8 H* (35-45) mmHg ABG pO2 63.6 L (80.0-100.0) mmH g ABG HCO3 42.5 H (22-26) mmol/L ABG Base Excess 14.0 H (-2.0-2.0) mmol/ L Donnie Test Pos Hematocrit 44.2 (42-52) % O2 Delivery Device Bipap O2 Liters/Min % FiO2 30.0 % Body Press Operator ID ed Sodium (136-145) mmol/L Potassium (3.5-5.1) mmol/L Chloride (98-107) mmol/L Carbon Dioxide (22-29) mmol/L Anion Gap (5-19) BUN (8-23) mg/dL Creatinine (0.7-1.2) mg/dL Glucose (74-106) mg/dL Lactic Acid 0.7 (0.5-2.2) mmol/L Calcium (8.5-10.5) mg/dL Magnesium (1.7-2.3) mg/dL Total Bilirubin (0.15-1.2) mg/dL AST (0-40) U/L ALT (0-41) U/L Alkaline Phosphata se (40-130) IU/L Troponin T Baselin e (0-15) ng/mL NT-Pro-B Natriuret Pep (0-450) pg/mL Total Protein (6.6-8.7) g/dL Albumin (3.5-5.2) g/dL Globulin (1.3-4.6) g/dL Urine Color Straw (Yellow) Urine Appearance Clear (CLEAR) Urine pH 5 (5-7) Ur Specific Gravit y 1.025 (1.005-1.030) Urine Protein Neg (Negative) Urine Glucose (UA) Norm (Normal) Urine Ketones Negative (Negative) Urine Occult Blood 2+ H (Negative) Urine Nitrate Negative (Negative) Urine Bilirubin Neg (NEGATIVE) Urine Urobilinogen Norm (Negative) mg/dL Ur Leukocyte Francheska ase Negative (Negative) Urine RBC 5-10 H (0-2) /hpf Urine WBC None (0-5) /hpf Ur Squamous Epith Cells None (0-5) Urine Bacteria Trace (NONE) Urine Mucus 2+ Influenza Type A A g (Negative) POC Influenza B Ag (Negative) Imaging Data^: CXR: My impression: No acute cardiopulmonary disease EKG Data^: EKG 1: Attestation: I personally reviewed and interpreted this EKG as follows: EKG Interpretation Date: 05/02/19 EKG interpretation time: 14:45 Interpretation: Carl fib flutter at 114-minute, right bundle branch block Discharge Plan Discharge Prescriptions: No Action prednisone 5 mg tablet 5 - 10 mg PO DAILY RF: 0 albuterol sulfate 2.5 mg /3 mL (0.083 %) solution for nebulization 2.5 mg INHALATION QID PRN (Reason: Shortness Of Breath) RF: 0 Trelegy Ellipta 100-62.5-25 mcg blister with device 1 inh INHALATION Q24H RF: 0 levalbuterol tartrate [Xopenex HFA] 45 mcg/actuation HFA aerosol inhaler 2 inh INHALATION QID RF: 0 atorvastatin 20 mg tablet 20 mg PO DAILY RF: 0 celecoxib 200 mg capsule 200 mg PO DAILY PRN (Reason: Inflammation) RF: 0 clonazepam 1 mg tablet 0.5 - 1 mg PO BID PRN (Reason: Anxiety) RF: 0 finasteride 5 mg tablet 5 mg PO DAILY RF: 0 levothyroxine 75 mcg capsule 75 mcg PO DAILY RF: 0 tamsulosin 0.4 mg capsule 0.4 mg PO BID RF: 0 hydrocodone-acetaminophen 10-325 mg tablet See Rx Instructions .ROUTE .COMPLEX PRN (Reason: Pain) RF: 0 ondansetron HCl [Zofran] 4 mg tablet 4 mg PO Q4H PRN (Reason: Nausea) RF: 0 fluticasone propionate [Flonase Allergy Relief] 50 mcg/actuation spray,suspension 1 spray INTRANASAL BID RF: 0 azithromycin 250 mg Tablet See Rx Instructions .ROUTE .COMPLEX RF: 0 amitriptyline 25 mg Tablet See Rx Instructions .ROUTE .COMPLEX RF: 0 metoprolol tartrate 25 mg Tablet 12.5 mg PO BID RF: 0 aspirin [Aspir-81] 81 mg Tablet,Delayed Release (Dr/Ec) 81 mg PO DAILY RF: 0 omega 0-fem-gzk-fish oil [Fish Oil] 1,000 mg (120 mg-180 mg) Capsule 1 cap PO DAILY RF: 0 Coding Level of Care Code ED Supervisor Grower for Chg Fwd Exam Problem Focused The documentation recorded by the Bennie bingham Kialy, accurately reflects the service I personally performed and the decisions made by Donnie newman Eli N May 02, 2019 13:00
--- NOTE | 2019-05-02 13:24 | PC.NURSE ---
Family states patient is confused about home medications, unsure of what and how many medications patient is actually taking or should be taking. Patient can not recall last medications or breathing treatments. Stated EMS was called at 0400 this morning but refused to go to hospital.
--- NOTE | 2019-05-02 13:27 | XRR_ITS ---
PROCEDURE INFORMATION: Exam: XR Chest, 1 View Exam date and time: 05/02/2019 1:46 PM Age: 74 years old Clinical indication: Cough TECHNIQUE: Imaging protocol: XR of the chest Views: 1 view. COMPARISON: CR XR chest 2V* [id number] 04/30/2019 3:34 PM FINDINGS: Lungs: There are calcified mediastinal and perihilar lymph nodes consistent with prior granulomatous exposure. There are pulmonary parenchymal calcifications consistent with remote granulomatous organism exposure. Pleural space: Unremarkable. No pleural effusion. No pneumothorax. Heart/Mediastinum: Heart size not optimally evaluated with a single AP view of the chest. Bones/joints: There are degenerative changes in the thoracic spine and across the acromioclavicular joints. XR/XR chest 1V portable [id number] IMPRESSION: No evidence for acute cardiopulmonary disease.
[2019-05-02 13:37] LABS: ABG PCO2 89.9 mmHg (35-45); ABG PH Result 7.29 (7.35-7.45); Arterial Blood Gas Hematocrit 43.7 % (42-52); Base Excess ABG 12.4 mmol/L (-2.0-2.0); Blood Gas Allen Test Pos; Blood Gas Sample Site Brachial, left; Blood Gas Sample Type Arterial; HCO3 ABG 43.3 mmol/L (22-26); Oxygen Device NC
[2019-05-02] MEDS: ipratropium-albuterol 3 mL Neb 9 ML INHALATION (13:49)
[2019-05-02 14:03] LABS: Basophils % 0.2 %; Eosinophils # 0.2 10^3/uL (0.0-0.8); Eosinophils % 1.5 %; Hematocrit 48.2 % (42.0-52.0); Hemoglobin 13.9 g/dL (11.7-16.6); Lymphocytes # 1.3 10^3/uL (0.8-4.8); Lymphocytes % 10.7 %; Mean Corpuscular HGB Conc 28.8 g/dL (30.0-36.0); Mean Corpuscular Hemoglobin 28.5 pg (28.0-34.0); Mean Platelet Volume 9.4 fL (7.4-10.4); Monocytes # 1.3 10^3/uL (0.2-0.9); Monocytes % 10.4 %; Neutrophils # 9.4 10^3/uL (1.8-7.7); Neutrophils % 76.8 %; Nucleated Red Blood Cells % 0 %; Platelet Count 172 10^3/cmm (130-400); Red Blood Count 4.87 10^6/uL (4.1-5.3); Red Cell Distribution Width 13.2 % (12.1-15.1); White Blood Count 12.3 10^3/uL (4.0-10.0)
[2019-05-02 14:13] LABS: Bilirubin Urine Neg (NEGATIVE); Blood Urine 2+ (Negative); Glucose Urine UA Norm (Normal); Ketones Urine Negative (Negative); Leukocyte Esterase Urine Negative (Negative); Nitrate Urine Negative (Negative); Protein Urine Neg (Negative); Specific Gravity, Urine 1.025 (1.005-1.030); Urine Appearance Clear (CLEAR); Urine Color Straw (Yellow); Urobilinogen Urine Norm (Negative); pH Urine 5 (5-7)
[2019-05-02 14:21] LABS: Troponin(5th) Baseline 22 ng/mL (0-15)
[2019-05-02 14:21] LABS: Bacteria Urine TRACE; Mucus Urine 2+
[2019-05-02 14:22] LABS: Add Urine Culture? No
[2019-05-02 14:32] LABS: Influenza A by IFA Negative (Negative); Influenza B by IFA Negative (Negative)
[2019-05-02 14:34] LABS: INR 0.94 (0.8-1.2)
[2019-05-02 14:47] LABS: Alanine Aminotransferase 18 U/L (0-41); Albumin Level 3.8 g/dL (3.5-5.2); Alkaline Phosphatase 71 IU/L (40-130); Anion Gap 15.8 (5-19); Aspartate Amino Transferase 13 U/L (0-40); Blood Urea Nitrogen 18 mg/dL (8-23); Calcium 9.5 mg/dL (8.5-10.5); Carbon Dioxide 36 mmol/L (22-29); Chloride 93 mmol/L (98-107); Globulin 3.3 g/dL (1.3-4.6); Glucose 180 mg/dL (74-106); Magnesium 2.2 mg/dL (1.7-2.3); NT Pro B Type Natriuretic Pept 121 pg/mL (0-450); Potassium 4.8 mmol/L (3.5-5.1); Sodium 140 mmol/L (136-145); Total Bilirubin 0.4 mg/dL (0.15-1.2); Total Protein 7.1 g/dL (6.6-8.7)
[2019-05-02 15:18] LABS: ABG PCO2 69.8 mmHg (35-45); ABG PH Result 7.39 (7.35-7.45); Arterial Blood Gas Hematocrit 44.2 % (42-52); Blood Gas Allen Test Pos; Blood Gas Sample Site Radial, left; Blood Gas Sample Type Arterial; HCO3 ABG 42.5 mmol/L (22-26); Oxygen Device BIPAP; PO2 ABG 63.6 mmHg (80.0-100.0)
--- NOTE | 2019-05-02 15:28 | ECG_ITS ---
Measurements Intervals [place] Rate: 92 P: 77 MA: 157 QRS: 89 QRSD: 141 T: 89 QT: 385 QTc: 477 SINUS RHYTHM WITH FREQUENT SUPRAVENTRICULAR PREMATURE COMPLEXES RIGHT BUNDLE BRANCH BLOCK [120+ ms QRS DURATION, UPRIGHT V1, 40+ ms S IN I/aVL/V4/V5/V6] Compared to ECG 05/02/2019 14:45:59 Atrial fibrillation no longer present Left-axis deviation no longer present Electronically Signed On 05-03-2019 17:52:28 MORTGAGE LOAN COORDINATOR by Darius Sainz M.D. [email or web address]
[2019-05-02 16:03] LABS: Lactic Sepsis W/Reflex 0.7 mmol/L (0.5-2.2)
--- NOTE | 2019-05-02 16:31 | P.HP_ITS ---
Providers/Chief Complaint Primary Care Provider: Jean Anderson APN Chief Complaint: sob/fall History of Present Illness Marko Gupta is a 74 year old male with a past medical history of COPD 3 L oxygen dependent, on chronic prednisone and azithromycin, with FEV1 of 1.32 L 50% of predicted, FEV1/FVC of 53% managed by educational audiologist Dr. Sharma, hypothyroidism, hypertension, who presents to the emergency room with family due to multiple complaints. According to family, patient is fairly active, goes to pulmonary rehab, can walk on a treadmill, lives at home by himself on patient was not feeling well, had episodes of shortness of breath, has a chronic cough, no fevers, no chills, no sick contact, no recent travel. On Friday patient had multiple falls, was found by family members in his home after he had fallen, family stated that there was trash cans kicked around, and he urinated on the floor, patient was acting confused, had slurring of his speech. Was brought to the emergency room and was found to have a compression of the L1 vertebra, was discharged on . On Friday patient's family noticed again that he was acting confused, he had a few falls, he had slurring of his speech. Then again on Friday morning, he called his sister, she could not understand what he was saying, although speech was slurred. Patient's family denies any facial droop, any paralysis, any seizure-like episodes. According to patient's he cannot remember any of this, he states that he is been progressively more short of breath throughout the weekend, he is using all his inhalers as prescribed has a productive cough, white phlegm. He does not remember having slurring of speech, does not remember having numbness or tingling of extremities, denies any focal neurologic deficits, denies any weakness, denies facial droop, denies changes in his vision. Patient continues to smoke, [id number] history of smoking. Patient states that he is Venus 10/325 half a tablet once in a while, he used half a tablet on Friday, and then again on Friday. Uses clonazepam 1.5 tablet nightly for sleep, did used half a tablet last night. He has been on Venus and clonazepam for some time. He did have a glass of wine according to h is son on Friday. But denies drinking alcohol throughout the weekend. Denies using drugs. Review of Systems Const: Denies: fever, chills or change in appetite Eyes: Denies: blurry vision ENMT: Reports: nasal discharge Card: Reports: shortness of breath on exertion; Denies: chest pain, palpitations, irregular heart rhythm, syncope, pre-syncope or shortness of breath when lying down Resp: Reports: shortness of breath and productive cough; Denies: wheezing GI: Denies: abdominal pain, nausea or vomiting : Denies: flank pain, difficulty urinating, painful urination, urinary frequency or urinary urgency Musc: Denies: neck pain or back pain Skin/Breast: Denies: rash Neuro: Reports: frequent falls, confusion and slurred speech; Denies: headache, numbness in extremities, weakness in extremities, changes in sensation, lack of coordination, difficulty walking, dizziness, vertigo, behavioral changes, difficulty communicating thoughts, seizure-like activity or involuntary movements Endo: Denies: excessive urination or excessive thirst Sharath/Lymph: Denies: easy bruising Medications/Allergies Allergies Allergy/AdvReac Type Severity Reaction Status Date / Time ceftriaxone [From Rocephin] Allergy Unknown Verified 04/19/19 16:41 Sulfa (Sulfonamide Allergy ALGY-Bliste Verified 04/30/19 14:18 Antibiotics) r Additional Medication Information Additional Medication Information: Albuterol Amitriptyline Aspirin 81 mg once daily Atorvastatin 20 mg once daily Azithromycin 3 times weekly Celebrex 200 mg once daily Clonazepam 1.5 mg nightly as needed, Finasteride 5 mg daily Venus 10/325 every 6 as needed Trilogy inhaler Levothyroxine 75 mg once daily Metoprolol 12.5 p.o. daily, patient states he is not using this Prednisone 5 mg once daily Flomax 0.4 mg twice daily PFSH Acute PFSH: Statuses (acute, chronic, etc) shown below reflect problem list status as previously entered and may not be historically accurate Medical History (Updated 05/02/19 @ 16:45 by Zacarias Dave MD) COPD (chronic obstructive pulmonary disease) (Acute) Dyspnea (Acute) Hypoxia (Acute) Surgical History H/O foot surgery (Acute) H/O rotator cuff surgery (Acute) Family History Other CAD (coronary artery disease) Diabetes Stroke Social History Smoking and tobacco status: current every day smoker cigarettes Years cigarettes smoked: 60 Alcohol intake: never Lives independently: Yes Current occupational status: retired History of recent travel: No Current gender identity: Male Vitals/I&O/Wt Last Vital Signs Pulse 121 H 05/02/19 14:00 Resp 38 H 05/02/19 14:00 BP 137/86 05/02/19 13:09 Pulse Ox 93 05/02/19 14:00 Weight last 48 hrs Weight 63.957 kg Physical Exam 2 Const: COMMON NORMALS: no apparent distress and oriented x3 GENERAL APPEARANCE: cooperative NUTRITIONAL APPEARANCE: overweight HENMT: COMMON NORMALS: normocephalic Eye: COMMON NORMALS: PERRL and EOMs intact bilaterally Neck/C-Spine: COMMON NORMALS: full ROM, no lymphadenopathy and no JVD Lymph: LYMPHATIC: no lymphadenopathy noted Chest: COMMONS NORMALS: inspection of chest normal Resp: COMMON NORMALS: normal respiratory effort, no retractions, no use of accessory muscles, clear to auscultation bilaterally and percussion normal EFFORT & INSPECTION: Yes able to speak in complete sentences, Yes symmetric chest movement, Yes tachypneic and Yes actively coughing AUSCULTATION: clear to auscultation bilaterally Cardio: COMMON NORMALS: no JVD, S1 normal heart sound and S2 normal heart sound RATE: tachycardic RHYTHM: abnormal rhythm GI: COMMON NORMALS: normal to inspection, nondistended, normoactive bowel sounds, soft to palpation, non-tender, no hepatosplenomegaly, no masses and no bruits : COMMON NORMALS: Yes no CVA tenderness Back/Pelvis: COMMON NORMALS: no CVA tenderness and thoracic and lumbar spine normal to inspection Extremity: COMMON NORMALS: normal capillary refill, no clubbing, cyanosis or edema and no pedal edema Neuro: COMMON NORMALS: oriented x3, CN's II-XII intact bilaterally, moves all extremities, no focal motor deficits and no sensory deficits noted COORDINATION/BALANCE: [id number] test normal MOTOR EXAM: strength 5/5 throughout Psych: COMMON NORMALS: mental status grossly normal and thought process normal Skin: NARRATIVE SKIN EXAM: Multiple bruising in upper extremity Data : 05/02/19 13:53 05/02/19 13:53 Micro: Microbiology 05/02/19 13:53 Blood Culture - Preliminary Blood SPECIMEN COLLECTED 05/02/19 13:40 Blood Culture - Preliminary Blood SPECIMEN COLLECTED A&P Assessment and plan (1) Acute hypercapnic respiratory failure: -Patient's chronic CO2 is at 50 -CO2 was 90, after BiPAP is come down to 70 -Patient is able to communicate on BiPAP, follows command, is much more alert awake according to family Plan: -Continue BiPAP -Repeat ABG at 7 PM, titrate BiPAP down possibly to nasal cannula -Solu-Medrol -Doxycycline -DuoNeb treatments -Patient CT Angio on 04/30/2019 showed mucous plugging -Patient would clinically benefit from a home BiPAP Status: Acute Code(s): J96.02 - Acute respiratory failure with hypercapnia (2) Transient ischemic attack: -Patient has had multiple instances of slurring of his speech, falls, urinary, urinary continence episodes -He is telemetry in the ER shows A. fib with RVR -The question was his alteration of his mentation related to CO2 narcosis and or TIAs. Likely CO2 narcosis, but given his A. fib with RVR which is new, I am concerned for the possibility of TIAs Plan: -Keep n.p.o., needs bedside swallow eval -Aspirin, statin -Carotid ultrasound, cardiac echo, CT head -TSH, lipid panel, neurochecks -PT OT for recurrent falls Status: Acute Code(s): G45.9 - Transient cerebral ischemic attack, unspecified (3) Atrial fibrillation with RVR: -A. fib with RVR in the ER, heart rates as high as 130s -Likely related to acute hypercapnic respiratory failure -However cannot rule out underlying cardiac etiology Plan: -Cardizem drip, transition to oral metoprolol -We will do Eliquis after CT of the head rules out intracranial bleed -Continue telemetry monitoring -Can consider an outpatient stress test Status: Acute Code(s): I48.91 - Unspecified atrial fibrillation (4) Closed compression fracture of L1 vertebra: Status: Acute Qualifiers: Encounter type: initial encounter Qualified Code(s): S32.010A - Wedge compression fracture of first lumbar vertebra, initial encounter for closed fracture Code(s): S32.010A - Wedge compression fracture of first lumbar vertebra, initial encounter for closed fracture (5) Closed wedge compression fracture of T10 vertebra: Status: Acute Qualifiers: Encounter type: initial encounter Qualified Code(s): S22.070A - Wedge compression fracture of T9-T10 vertebra, initial encounter for closed fracture Code(s): S22.070A - Wedge compression fracture of T9-T10 vertebra, initial encounter for closed fracture (6) Fall: Status: Acute Qualifiers: Encounter type: initial encounter Qualified Code(s): W19.XXXA - Unspecified fall, initial encounter Code(s): W19.XXXA - Unspecified fall, initial encounter (7) Hypertension: Status: Acute Code(s): I10 - Essential (primary) hypertension (8) Hyperlipidemia: Status: Acute Code(s): E78.5 - Hyperlipidemia, unspecified Attestations Medical Necessity Statement*: Patient requires hospitalization, inpatient, greater than 2 midnights for acute hypercapnic respiratory failure, TIA, A. fib with RVR Coding Level of Care Code Acute Round Cutter Operator for [facility] Fwd Diagnoses Acute hypercapnic respiratory failure J96.02 Transient ischemic attack G45.9 Atrial fibrillation with RVR I48.91 Closed compression fracture of L1 vertebra S32.010A Encounter type: initial encounter Closed wedge compression fracture of T10 vertebra S22.070A Encounter type: initial encounter Fall W19.XXXA Encounter type: initial encounter Hypertension I10 Hyperlipidemia E78.5
--- NOTE | 2019-05-02 16:54 | CTR_ITS ---
PROCEDURE INFORMATION: Exam: CT Head Without Contrast Exam date and time: 05/02/2019 5:16 PM Age: 74 years old Clinical indication: Injury or trauma; Fall; Initial encounter; Blunt trauma (contusions or hematomas); Consciousness not specified; Injury date: 05/02/2019; Injury details: Weakness, PT fell today TECHNIQUE: Imaging protocol: Computed tomography of the head without contrast. Total DLP: 860.96 mGy-cm Radiation optimization: All CT scans at this facility use at least one of these dose optimization techniques: automated exposure control; mA and/or kV adjustment per patient size (includes targeted exams where dose is matched to clinical indication); or iterative reconstruction. COMPARISON: CT head wo con* [id number] 04/30/2019 3:57 PM FINDINGS: Brain: There is mild diffuse cerebral atrophy present, consistent with this patient's age. There is a benign arachnoid cyst posterior midline posterior fossa unchanged from the prior exam. No evidence for large acute ischemic infarction. Please note acute ischemia can be occult by head CT. Ventricles: Normal. No ventriculomegaly. Bones/joints: Unremarkable. No acute fracture. Sinuses: There is mucosal thickening in the right sphenoid sinus and several ethmoid air cells. Mastoid air cells: Visualized mastoid air cells are well aerated. Soft tissues: Unremarkable. Vasculature: Calcified plaque is present within the carotid siphons. CT/CT head wo con* [id number] IMPRESSION: There are senescent changes of the brain as described above. No evidence for large acute ischemic infarction or acute intracranial injury. Radiation Dose CTDIVOL = (mGy): DLP = 860.96 (mGy-cm)
[2019-05-02 18:20] LABS: Thyroid Stimulating Hormone 1.51 uIU/mL (0.27-4.20)
[2019-05-02] MEDS: apixaban 5 mg Tablet PO (18:42)
[2019-05-02] MEDS: metoprolol tartrate 25 mg Tablet PO (18:42)
[2019-05-02] MEDS: tamsulosin 0.4 mg Capsule PO (18:43)
[2019-05-02] MEDS: sodium chloride 0.9% 1,000 ML 75 ML IV (18:43)
[2019-05-02] MEDS: doxycycline 100 MG in sodium chloride 0.9% (plus) 100 ML IV (19:05)
--- NOTE | 2019-05-02 19:28 | ECG_ITS ---
Measurements Intervals [place] Rate: 114 P: MA: 0 QRS: -35 QRSD: 128 T: -12 QT: 341 QTc: 470 ATRIAL FIBRILLATION WITH RAPID VENTRICULAR RESPONSE LEFT AXIS DEVIATION [QRS AXIS < -30] RIGHT BUNDLE BRANCH BLOCK [120+ ms QRS DURATION, UPRIGHT V1, 40+ ms S IN I/aVL/V4/V5/V6] Compared to ECG 04/30/2019 16:55:48 Left-axis deviation now present Sinus tachycardia no longer present Ventricular premature complex(es) no longer present Electronically Signed On 05-02-2019 18:56:08 WOOD FENCE ERECTOR by Darius Sainz M.D. [email or web address]
[2019-05-02 19:38] LABS: ABG PH Result 7.35 (7.35-7.45); Arterial Blood Gas Hematocrit 45.3 % (42-52); Base Excess ABG 13.6 mmol/L (-2.0-2.0); Blood Gas Allen Test Pos; Blood Gas Sample Type Arterial; HCO3 ABG 43.4 mmol/L (22-26); PO2 ABG 78.1 mmHg (80.0-100.0)
[2019-05-02 19:39] LABS: ABG PCO2 78.4 mmHg (35-45)
[2019-05-02] MEDS: ipratropium-albuterol 3 mL Neb INHALATION ×2 (19:59→23:48)
[2019-05-02] MEDS: amitriptyline 25 mg Tablet PO (21:26)
[2019-05-02] MEDS: HYDROcodone-acetaminophen 10-325 mg Tablet 1 TAB PO (21:26)
[2019-05-03] VITALS (23 sets, daily range): BP systolic 105–154; BP diastolic 67–90; PULSE 75–107; RESP 16–33; TEMP 36.4–37.1; O2SAT 88–96
[2019-05-03] MEDS: ipratropium-albuterol 3 mL Neb INHALATION ×6 (03:17→23:45)
[2019-05-03 05:03] LABS: Basophils % 0.1 %; Hematocrit 45.2 % (42.0-52.0); Hemoglobin 13.2 g/dL (11.7-16.6); Lymphocytes # 0.8 10^3/uL (0.8-4.8); Lymphocytes % 8.7 %; Mean Corpuscular HGB Conc 29.2 g/dL (30.0-36.0); Mean Corpuscular Hemoglobin 28.9 pg (28.0-34.0); Mean Corpuscular Volume 98.9 fL (80-94); Mean Platelet Volume 9.8 fL (7.4-10.4); Monocytes # 0.8 10^3/uL (0.2-0.9); Neutrophils # 7.9 10^3/uL (1.8-7.7); Neutrophils % 82.9 %; Nucleated Red Blood Cells % 0 %; Platelet Count 167 10^3/cmm (130-400); Red Blood Count 4.57 10^6/uL (4.1-5.3); Red Cell Distribution Width 13.2 % (12.1-15.1); White Blood Count 9.6 10^3/uL (4.0-10.0)
[2019-05-03] MEDS: doxycycline 100 MG in sodium chloride 0.9% (plus) 100 ML IV ×2 (05:25→17:08)
[2019-05-03 05:32] LABS: Alanine Aminotransferase 16 U/L (0-41); Albumin Level 3.6 g/dL (3.5-5.2); Alkaline Phosphatase 57 IU/L (40-130); Anion Gap 11.3 (5-19); Aspartate Amino Transferase 10 U/L (0-40); Blood Urea Nitrogen 17 mg/dL (8-23); Carbon Dioxide 35 mmol/L (22-29); Chloride 96 mmol/L (98-107); Glucose 176 mg/dL (74-106); Magnesium 2.1 mg/dL (1.7-2.3); Potassium 4.3 mmol/L (3.5-5.1); Sodium 138 mmol/L (136-145); Total Bilirubin 0.3 mg/dL (0.15-1.2); Total Protein 6.6 g/dL (6.6-8.7)
[2019-05-03 05:35] LABS: Estmated Average Glucose 140; Hemoglobin A1C 6.5 % (4.0-6.0)
[2019-05-03 05:53] LABS: Chol HDL Ratio 2.62 mg/dL (1.0-5.00); Cholesterol 215 mg/dL (0-200); HDL Cholesterol 82 mg/dL (60-100); LDL Cholesterol Calculated 116 mg/dL (50-129); LDL HDL Ratio 1.41 RATIO (0.00-3.22); Triglycerides 84 mg/dL (0-150)
[2019-05-03] MEDS: sodium chloride 0.9% 1,000 ML 75 ML IV ×2 (06:28→20:56)
[2019-05-03 07:13] LABS: Blood Gas Operator Identificat MB
[2019-05-03] MEDS: atorvastatin 40 mg Tablet 80 MG PO (09:04)
[2019-05-03] MEDS: aspirin 81 mg EC Tablet PO (09:05)
[2019-05-03] MEDS: finasteride 5 mg Tablet PO (09:05)
[2019-05-03] MEDS: tamsulosin 0.4 mg Capsule PO ×2 (09:05→17:09)
[2019-05-03] MEDS: metoprolol tartrate 25 mg Tablet PO ×2 (09:05→17:09)
[2019-05-03] MEDS: apixaban 5 mg Tablet PO ×2 (09:05→17:09)
[2019-05-03] MEDS: levothyroxine 150 mcg Tablet 75 MCG PO (09:06)
--- NOTE | 2019-05-03 13:01 | PC.CHAP ---
Pastoral Care Encounter/Spiritual Assessment Type of Contact [] Declined supervisor ditching visit [x] Patient/Family/Request visit [] Outpatient visit [] Follow-up visit [] Physician referral [] Code/Alert [x] Routine visit [] Staff referral [] Actively dying [] Patient sleeping [] Family support [] [] Out of room [] Palliative care [] [x] Receiving care in room [] Pre-surgical visit [] Trauma [] Long length of stay [] ICU visit [] Other: Relational/Emotional Strength [x] Patient feels connected with others/family/visitors/staff [x] Distress [] Loneliness/isolation [] Abandonment Spirituality of Patient [x] Person of Yessenia [] Attends Quaker of their Yessenia [x] Believes in Prayer [] Reads Bible or Scientology materials [] There are Spiritual issues to be addressed Unit Controller Interventions [x] Prayer [x] Active listening [x] Non-anxious presence [] Spiritual/emotional support [] Crisis/trauma care [] Spiritual counseling [] Bereavement support [] Provided bereavement packet [] Provided Bible/devotional materials [] Provided toy/stuffed animal, coloring book to patient or family member [x] Completed spiritual assessment [] Provided Communion [] Anointing/[place] [] Salvation [] Other: Impact on Illness or Injury [] Angry [] Fearful [x] Anxious [] Often cries [] Exhaustion [] Unable to work [x] Unable to attend nondenominational [] Unable to walk/stand [] Unable to read [] Unable to drive [] Unable to eat/drink [] Unable to sleep [] Unable to be with family [] Other: Summary oxygen ,unable to talk, non verble. Talked with daughter. she was in room/ Time spent with patient 15 min.
--- NOTE | 2019-05-03 17:35 | USCV_ITS ---
Marko Gupta Age: 74 Gender: M : 1945 Exam Date: 05/03/2019 06:30 Ordering Phys: Zacarias Dave MD Technologist: Aspen Andrade Exam Location: [facility] [place] Indication: stroke? BP: 127 / 70 HR: 94 Rhythm: Sinus Technical Quality: Suboptimal MEASUREMENTS (Male / Female) Normal Values 2D ECHO LV Diastolic Diameter PLAX 4.8 cm 4.2 - 5.9 / 3.9 - 5.3 cm LV Systolic Diameter PLAX 2.3 cm IVS Diastolic Thickness 0.7 cm 0.6 - 1.0 / 0.6 - 0.9 cm IVS Systolic Thickness 1.2 cm LVPW Diastolic Thickness 0.8 cm 0.6 - 1.0 / 0.6 - 0.9 cm LVPW Systolic Thickness 1.5 cm LVOT Diameter 2.0 cm LV Ejection Fraction 2D Teich 83.8 % LV Ejection Fraction MOD 2C 69.8 % LV Ejection Fraction 2C AL 68.9 % LA Diameter 2.8 cm LA Width 3.1 cm LA Height 3.9 cm RA Width 3.3 cm RA Height 3.3 cm M-MODE LV Diastolic Diameter MM 4.7 cm 4.2 - 5.9 / 3.9 - 5.3 cm LV Systolic Diameter MM 3.3 cm LV Ejection Fraction MM Teich 55.4 % IVS Diastolic Thickness MM 0.8 cm 0.6 - 1.0 / 0.6 - 0.9 cm IVS Systolic Thickness MM 1.1 cm LVPW Diastolic Thickness MM 0.9 cm 0.6 - 1.0 / 0.6 - 0.9 cm LVPW Systolic Thickness MM 1.4 cm Aortic Annulus Diameter 3.5 cm LA Ao Ratio MM 0.8 MV E Point Septal Separation 0.5 cm DOPPLER AV Peak Velocity 120.0 cm/s LVOT Peak Velocity 97.0 cm/s AV Area Cont Eq vti 2.8 cm squared AV Area Cont Eq pk 2.7 cm squared MV Peak Velocity 121.0 cm/s MV Area PHT 5.0 cm squared Mitral E to A Ratio 0.5 MV E' Velocity 5.0 cm/s Mitral E to MV E' Ratio 10.4 Mitral E to LV E' Lateral Ratio 12.6 Mitral E to LV E' Septal Ratio 9.0 TR Peak Velocity 244.0 cm/s TR Peak Gradient 23.9 mmHg Right Atrial Pressure 3.0 mmHg Pulmonary Artery Systolic Pressu 26.8 mmHg PV Peak Velocity 107.0 cm/s RV Acceleration Time 0.1 s FINDINGS Left Ventricle Left ventricular cavity not well visualized. Normal left ventricular size, systolic function and wall thickness, with no regional wall motion abnormalities. Grade I/IV diastolic dysfunction (abnormal relaxation filling pattern), normal to mildly elevated filling pressures. Left ventricular ejection fraction is estimated at 60 %. Right Ventricle Normal right ventricular size and systolic function. Normal right ventricular systolic pressure. Right Atrium The right atrium is normal in size. Left Atrium The left atrium is normal in size. Mitral Valve Mitral valve not well visualized. Mild mitral valve regurgitation. Aortic Valve Aortic valve not well visualized. Tricuspid Valve Structurally normal tricuspid valve. Trace to mild tricuspid valve regurgitation. Pulmonic Valve Pulmonic valve not well visualized. Pericardium Normal pericardium without effusion. Aorta Normal ascending aorta dimension. CONCLUSIONS Left ventricular cavity not well visualized. Normal left ventricular size, systolic function and wall thickness, with no regional wall motion abnormalities. Grade I/IV diastolic dysfunction (abnormal relaxation filling pattern), normal to mildly elevated filling pressures. Left ventricular ejection fraction is estimated at 60 %. Mitral valve not well visualized. Mild mitral valve regurgitation. No change from the previous study from 11/18/2017 Dr. Farhad Ray MD (Electronically Signed) Final Date: 03 May 2019 17:29 S
--- NOTE | 2019-05-03 17:35 | USCV_ITS ---
Marko Gupta Age: 74 Gender: M : 1945 Exam Date: 05/03/2019 06:05 Ordering Phys: Zacarias Dave MD Technologist: Aspen Andrade Exam Location: [facility] [place] Indication: ? stroke Risk Factors: None Previous Vascular Surgery: None Right Brachial BP: / Left Brachial BP: / Right Left Velocity (cm/s) Spectral Plaque Velocity (cm/s) Spectral Plaque Syst/Diast Broadening Syst/Diast Broadening 31.00/ 6.90 Prox CCA 50.50 / 12.40 34.70/ 11.70 Mid CCA 46.60 / 8.50 37.90/ 12.80 Hetro Distal CCA 50.50 / 10.90 Hetro 48.60/ 14.50 Hetro Prox ICA 51.30 / 16.30 Hetro 60.50/ 21.00 Mid ICA 54.40 / 17.90 66.80/ 22.50 Distal ICA 57.50 / 19.40 75.20 ECA 61.40 1.76 ICA/CCA 1.14 Antegrade Vertebral Antegrade 62.10/ 20.20 cm/s 39.50/ 17.60 cm/s Tri Subclavian Tri 67.60 87.10 FINDINGS Comparison:. 11/18/17. No significant elevation of systolic or diastolic velocities. Waveforms are normal. Diffuse bilateral scattered calcified plaque and intimal thickening throughout the common carotid arteries and extending through the bifurcation. CONCLUSIONS Bilateral ICA stenosis less than 50%. No interval change in stenosis since prior exam. Dr. Michelle Black DO (Electronically Signed) Final Date: 03 May 2019 09:02 S
--- NOTE | 2019-05-03 18:17 | PC.RESP ---
Patient currently active in Pulmonary Rehab.
--- NOTE | 2019-05-03 19:25 | PM.PN ---
Subjective Subjective: Interval history: This morning patient was observed off BiPAP, states that his breathing has significantly improved, no shortness of breath, no lightheadedness, no dizziness, is still having episodes of some confusion, but overall doing better, no chest pain, no palpitations Vitals/I&O/Wt Last Vital Signs Temp 97.8 F 05/03/19 15:22 Pulse 96 05/03/19 15:49 Resp 20 H 05/03/19 15:43 BP 118/71 05/03/19 15:22 Pulse Ox 94 05/03/19 15:44 05/03/19 05/03/19 05/03/19 06:59 14:59 22:59 Intake Total 1621.25 / 1750.00 100 / 100 236 / 336 Output Total 375 / 525 700 / 700 200 / 900 Balance 1246.25 / 1225.00 -600 / -600 36 / -564 Weight last 48 hrs Weight 63.957 kg Physical Exam Const: COMMON NORMALS: no apparent distress and oriented x3 GENERAL APPEARANCE: cooperative NUTRITIONAL APPEARANCE: overweight Neck/C-Spine: COMMON NORMALS: full ROM, no lymphadenopathy and no JVD Lymph: LYMPHATIC: no lymphadenopathy noted Chest: COMMONS NORMALS: inspection of chest normal Resp: COMMON NORMALS: normal respiratory effort, no retractions, no use of accessory muscles, clear to auscultation bilaterally and percussion normal EFFORT & INSPECTION: Yes able to speak in complete sentences, Yes symmetric chest movement, Yes tachypneic and Yes actively coughing AUSCULTATION: clear to auscultation bilaterally PERCUSSION: percussion normal Cardio: COMMON NORMALS: no JVD, regular rate, S1 normal heart sound and S2 normal heart sound RATE: regular rate and tachycardic HEART SOUNDS: S1 normal and S2 normal GI: COMMON NORMALS: normal to inspection, nondistended, normoactive bowel sounds, soft to palpation, non-tender, no hepatosplenomegaly, no masses and no bruits PALPATION: Yes soft and Yes no hepatosplenomegaly Extremity: COMMON NORMALS: normal capillary refill, no clubbing, cyanosis or edema and no pedal edema Neuro: COMMON NORMALS: oriented x3 Psych: COMMON NORMALS: mental status grossly normal and thought process normal THOUGHT PROCESS: normal thought process Data : 05/03/19 04:28 05/03/19 04:28 Micro: Microbiology 05/02/19 13:53 Blood Culture - Preliminary Blood NEGATIVE TO DATE 05/02/19 13:40 Blood Culture - Preliminary Blood NEGATIVE TO DATE A&P Assessment and plan (1) Acute hypercapnic respiratory failure: -Patient's chronic CO2 is at 50 -CO2 was 90, after BiPAP is come down to 70, still hovering around 78 Plan: -Continue BiPAP -Solu-Medrol -Doxycycline -DuoNeb treatments -Patient CT Angio on 04/30/2019 showed mucous plugging -Patient would clinically benefit from a a trilogy machine, given his chronic hypercapnia, and CO2 narcosis Status: Acute Code(s): J96.02 - Acute respiratory failure with hypercapnia (2) Transient ischemic attack: -Patient's neurologic exam is unremarkable -Likely patient's symptoms are related to CO2 narcosis, highly unlikely patient has TIAs -CT head was negative for any acute infarct, carotid Doppler showed ICA stenosis less than 50% Plan: -Continue aspirin, statin -PT OT Status: Acute Code(s): G45.9 - Transient cerebral ischemic attack, unspecified (3) Atrial fibrillation with RVR: -A. fib with RVR in the ER, heart rates as high as 130s -Likely related to acute hypercapnic respiratory failure -Currently normal sinus rhythm heart rate 90s Plan: -Continue oral metoprolol -Continue Eliquis, discussed risk and benefits, voiced understanding, all questions answered, agrees to proceed -Continue telemetry monitoring -Can consider an outpatient stress test Status: Acute Code(s): I48.91 - Unspecified atrial fibrillation (4) Closed compression fracture of L1 vertebra: Status: Acute Qualifiers: Encounter type: initial encounter Qualified Code(s): S32.010A - Wedge compression fracture of first lumbar vertebra, initial encounter for closed fracture Code(s): S32.010A - Wedge compression fracture of first lumbar vertebra, initial encounter for closed fracture (5) Closed wedge compression fracture of T10 vertebra: Status: Acute Qualifiers: Encounter type: initial encounter Qualified Code(s): S22.070A - Wedge compression fracture of T9-T10 vertebra, initial encounter for closed fracture Code(s): S22.070A - Wedge compression fracture of T9-T10 vertebra, initial encounter for closed fracture (6) Fall: Status: Acute Qualifiers: Encounter type: initial encounter Qualified Code(s): W19.XXXA - Unspecified fall, initial encounter Code(s): W19.XXXA - Unspecified fall, initial encounter (7) Hypertension: Status: Acute Code(s): I10 - Essential (primary) hypertension (8) Hyperlipidemia: Status: Acute Code(s): E78.5 - Hyperlipidemia, unspecified Attestations Medical Necessity Statement*: Patient requires continued hospitalization, for acute respiratory failure, CO2 narcosis, A. fib Coding Level of Care Code Acute Corporate Claims Examiner for g Fwd Diagnoses Acute hypercapnic respiratory failure J96.02 Transient ischemic attack G45.9 Atrial fibrillation with RVR I48.91 Closed compression fracture of L1 vertebra S32.010A Encounter type: initial encounter Closed wedge compression fracture of T10 vertebra S22.070A Encounter type: initial encounter Fall W19.XXXA Encounter type: initial encounter Hypertension I10 Hyperlipidemia E78.5
[2019-05-04] VITALS (16 sets, daily range): BP systolic 129–168; BP diastolic 78–98; PULSE 79–118; RESP 18–30; TEMP 36.6–36.9; O2SAT 85–95
[2019-05-04] MEDS: ipratropium-albuterol 3 mL Neb INHALATION ×4 (03:00→15:23)
--- NOTE | 2019-05-04 06:17 | PC.NURSE ---
PT PULLED OUT THEIR IV THIS AM. PT ALSO REFUSED LABS THIS AM. PT DIDN'T WANT STAFF TO TRY FOR A NEW IV. PT REQUESTED THAT AN ULTRASOUND MACHINE BE USED TO FIND VEINS. CHARGE NURSE WAS NOTIFIED AND TALKED TO PATIENT. PT DOES NOT HAVE AN IV AT THIS TIME AND PT REFUSES ANY ATTEMPTS AT THIS TIME.
--- NOTE | 2019-05-04 06:46 | PC.NURSE ---
PT CALLED HOSPITAL FROM PERSONAL CELL PHONE. PT WAS TRANSFERRED TO NURSING STATION. ONCE ASKED WHAT THE PATIENT NEEDED THE PATIENT STATED THAT THEY ARE MAKING THEIR REPORTS. THIS NURSE ARE IF THE PATIENT KNEW WHERE THEY WERE AND THE PATIENT SAID THAT THEY WERE AT HOME. PATIENT WAS REDIRECTED AND TOLD THAT WE ARE AT THE HOSPITAL. PT STATED THAT THEY KNEW THAT. PT WAS PLEASANT. WILL CONTINUE TO MONITOR.
[2019-05-04 08:04] LABS: Basophils % 0.1 %; Hematocrit 45.5 % (42.0-52.0); Hemoglobin 13.6 g/dL (11.7-16.6); Lymphocytes # 0.8 10^3/uL (0.8-4.8); Lymphocytes % 4.7 %; Mean Corpuscular HGB Conc 29.9 g/dL (30.0-36.0); Mean Corpuscular Hemoglobin 28.8 pg (28.0-34.0); Mean Corpuscular Volume 96.2 fL (80-94); Mean Platelet Volume 9.9 fL (7.4-10.4); Monocytes # 1.1 10^3/uL (0.2-0.9); Monocytes % 6.8 %; Neutrophils # 14.3 10^3/uL (1.8-7.7); Nucleated Red Blood Cells % 0 %; Platelet Count 216 10^3/cmm (130-400); Red Blood Count 4.73 10^6/uL (4.1-5.3); Red Cell Distribution Width 13.3 % (12.1-15.1); White Blood Count 16.2 10^3/uL (4.0-10.0)
[2019-05-04] MEDS: apixaban 5 mg Tablet PO (08:17)
[2019-05-04] MEDS: aspirin 81 mg EC Tablet PO (08:17)
[2019-05-04] MEDS: metoprolol tartrate 25 mg Tablet PO (08:17)
[2019-05-04] MEDS: finasteride 5 mg Tablet PO (08:17)
[2019-05-04] MEDS: levothyroxine 150 mcg Tablet 75 MCG PO (08:17)
[2019-05-04] MEDS: tamsulosin 0.4 mg Capsule PO (08:18)
[2019-05-04 08:21] LABS: Alanine Aminotransferase 25 U/L (0-41); Albumin Level 4.1 g/dL (3.5-5.2); Alkaline Phosphatase 66 IU/L (40-130); Anion Gap 15.9 (5-19); Aspartate Amino Transferase 23 U/L (0-40); Blood Urea Nitrogen 24 mg/dL (8-23); Carbon Dioxide 31 mmol/L (22-29); Chloride 101 mmol/L (98-107); Globulin 3.1 g/dL (1.3-4.6); Glucose 118 mg/dL (74-106); Magnesium 2.4 mg/dL (1.7-2.3); Phosphorus 2.7 mg/dL (2.5-4.5); Potassium 3.9 mmol/L (3.5-5.1); Sodium 144 mmol/L (136-145); Total Bilirubin 0.3 mg/dL (0.15-1.2); Total Protein 7.2 g/dL (6.6-8.7)
[2019-05-04] MEDS: atorvastatin 40 mg Tablet 80 MG PO (08:45)
[2019-05-04] MEDS: doxycycline 100 MG in sodium chloride 0.9% (plus) 100 ML IV (09:06)
--- NOTE | 2019-05-04 10:55 | PC.NURSE ---
patient is resting well with eyes closed appears to be sleeping bi-pap in place at this time, will continue nursing cares.
--- NOTE | 2019-05-04 13:45 | P.DS_ITS ---
Discharge Providers Date of Admission: 05/02/19 16:32 Date of Discharge: 05/04/19 Attending Provider at Admission: Zacarias Dave MD Attending Provider at Discharge: Zacarias Dave MD Primary Care Provider: Jean Anderson APN Diagnoses at Discharge Discharge Diagnosis (1) Acute hypercapnic respiratory failure: Status: Acute (2) Transient ischemic attack: Status: Acute (3) Atrial fibrillation with RVR: Status: Acute (4) Closed compression fracture of L1 vertebra: Status: Acute Qualifiers: Encounter type: initial encounter Qualified Code(s): S32.010A - Wedge compression fracture of first lumbar vertebra, initial encounter for closed fracture (5) Closed wedge compression fracture of T10 vertebra: Status: Acute Qualifiers: Encounter type: initial encounter Qualified Code(s): S22.070A - Wedge compression fracture of T9-T10 vertebra, initial encounter for closed fracture (6) Fall: Status: Acute Qualifiers: Encounter type: initial encounter Qualified Code(s): W19.XXXA - Unspecified fall, initial encounter (7) Hypertension: Status: Acute (8) Hyperlipidemia: Status: Acute Reason for Visit Reason for Visit: Reason For Visit: afib;resp distress Hospital Course Discharge Summary: Marko Gupta is a 74 year old male with a past medical history of COPD 3 L oxygen dependent, on chronic prednisone and azithromycin, with FEV1 of 1.32 L 50% of predicted, FEV1/FVC of 53% managed by magnet placer Dr. Sharma, hypothyroidism, hypertension, who presents to the emergency room with family due to multiple complaints cough, shortness of breath, confusion. Patient was admitted for acute hypercapnic respiratory failure secondary to COPD, his baseline's CO2 is 50, on admission his CO2 was 90, it only slightly improved with noninvasive mechanical ventilation, patient's breathing improved, mentation improved, who is relieved steroids, doxycycline, managed in the cardiac stepdown unit. I believe patient would benefit from a noninvasive mechanical ventilation such as trilogy machine, which was obtained for the patient, he was discharged with the trilogy machine to be used at home, with a follow-up with Dr. Sharma as outpatient. He was discharged with a steroid taper and doxycycline for 7 remaining days. Patient also suffered for CO2 narcosis initially, his mentation significant improved with noninvasive mechanical ventilation. There was initial thought that his altered mental status could be related to a transient ischemic attack, CT head was negative for intracranial bleed, carotid ultrasounds were negative for significant carotid artery stenosis. Likely patient symptoms are secondary to CO2 narcosis, but he was discharged on aspirin and statin. In the emergency room patient was to have A. fib with RVR, heart rates as high as 130s, likely secondary to acute respiratory failure, he subsequently converted to normal sinus rhythm with metoprolol, and has remained normal sinus rhythm throughout his admission. Patient was discharged with metoprolol, and Eliquis. I discussed the risks and benefits of Eliquis, patient voiced understanding, all questions answered, agreed to proceed with Eliquis. Patient was advised that if he were to have bloody or black stools come back to emergency room. Recheck hemoglobin in 1 week. Patient is to follow-up with cardiology in 1 month, for Holter monitoring, to determine if he has recurrent episodes of atrial fibrillation to determine if he needs to remain on anti-c oagulation. Physical Exam Const: COMMON NORMALS: no apparent distress and oriented x3 GENERAL APPEARANCE: cooperative NUTRITIONAL APPEARANCE: overweight HENMT: COMMON NORMALS: normocephalic HEAD & SCALP: normocephalic Eye: COMMON NORMALS: PERRL and EOMs intact bilaterally PUPIL: Yes PERRL Neck/C-Spine: COMMON NORMALS: no JVD Resp: COMMON NORMALS: normal respiratory effort, no retractions, no use of accessory muscles, clear to auscultation bilaterally and percussion normal EFFORT & INSPECTION: Yes able to speak in complete sentences, Yes symmetric chest movement, Yes tachypneic and Yes actively coughing AUSCULTATION: clear to auscultation bilaterally PERCUSSION: percussion normal Cardio: COMMON NORMALS: no JVD, regular rate, S1 normal heart sound and S2 normal heart sound RATE: regular rate and tachycardic RHYTHM: abnormal rhythm HEART SOUNDS: S1 normal and S2 normal GI: COMMON NORMALS: normal to inspection, nondistended, normoactive bowel sounds, soft to palpation, non-tender, no hepatosplenomegaly, no masses and no bruits PALPATION: Yes soft and Yes no hepatosplenomegaly Neuro: COMMON NORMALS: oriented x3 Discharge Data Data Completed and Pending: Completed Studies During Hospitalization Category Date Time Status CT head wo con* 7 0450 Routine Cat Scan 05/02/19 16:54 Completed XR chest 1V felicita ble [id number] Stat Exams 05/02/19 13:27 Completed CV carotid duplex BI* [id number] Routine Ultrasound 05/03/19 17:35 Completed CV echo complete* [id number] Routine Ultrasound 05/03/19 17:35 Completed Pending at discharge Category Date Time Status Blood Culture Sta t Lab 05/02/19 13:53 Results CBC [Complete Blo od Count w/Auto] A M LABS Lab 05/05/19 04:00 Ordered CBC [Complete Blo od Count w/Auto] A M LABS Lab 05/06/19 04:00 Ordered CBC [Complete Blo od Count w/Auto] A M LABS Lab 05/07/19 04:00 Ordered Complete Blood Co unt w/Auto AM LABS Lab 05/05/19 04:00 Ordered Comprehensive Met abolic Panel AM LA BS Lab 05/05/19 04:00 Ordered Comprehensive Met abolic Panel AM LA BS Lab 05/05/19 04:00 Ordered Comprehensive Met abolic Panel AM LA BS Lab 05/06/19 04:00 Ordered Comprehensive Met abolic Panel AM LA BS Lab 05/07/19 04:00 Ordered Magnesium AM LABS Lab 05/05/19 04:00 Ordered Phosphorus AM LAB S Lab 05/05/19 04:00 Ordered Labs from last 24 hours 05/04/19 05/04/19 07:47 07:47 WBC 16.2 H RBC 4.73 Hgb 13.6 Hct 45.5 MCV 96.2 H MCH 28.8 MCHC 29.9 L RDW 13.3 Plt Count 216 MPV 9.9 Neut % (Auto) 88.0 Lymph % (Auto) 4.7 [place] % (Auto) 6.8 Eos % (Auto) 0.0 Baso % (Auto) 0.1 Neut # (Auto) 14.3 H Lymph # (Auto) 0.8 [place] # (Auto) 1.1 H Eos # (Auto) 0.0 Baso # (Auto) 0.0 Nucleated RBC % (a uto) 0 Nucleated RBCs # 0.0 Sodium 144 Potassium 3.9 Chloride 101 Carbon Dioxide 31 H Anion Gap 15.9 BUN 24 H Creatinine 0.7 Glucose 118 H Calcium 10.0 Phosphorus 2.7 Magnesium 2.4 H Total Bilirubin 0.3 AST 23 ALT 25 Alkaline Phosphata se 66 Total Protein 7.2 Albumin 4.1 Globulin 3.1 Vitals: Last Vital Signs Temp 97.8 F 05/04/19 11:29 Pulse 91 05/04/19 11:32 Resp 30 H 05/04/19 11:32 BP 129/88 05/04/19 11:29 Pulse Ox 85 L 05/04/19 12:55 Discharge Plan Discharge Patient Disposition: Home, Self-Care Condition: Stable Prescriptions: New aspirin 81 mg Tablet,Delayed Release (Dr/Ec) 81 mg PO DAILY 30 Days Qty: 60 RF: 0 metoprolol tartrate 25 mg Tablet 25 mg PO BID 30 Days Qty: 60 RF: 0 Eliquis 5 mg Tablet 5 mg PO BID 30 Days Qty: 60 RF: 0 prednisone 10 mg tablet 10 mg PO DIRECTED 25 Days Qty: 53 RF: 0 Continued albuterol sulfate 2.5 mg /3 mL (0.083 %) solution for nebulization 2.5 mg INHALATION QID PRN (Reason: Shortness Of Breath) RF: 0 Trelegy Ellipta 100-62.5-25 mcg blister with device 1 inh INHALATION Q24H RF: 0 levalbuterol tartrate [Xopenex HFA] 45 mcg/actuation HFA aerosol inhaler 2 inh INHALATION QID RF: 0 celecoxib 200 mg capsule 200 mg PO DAILY PRN (Reason: Inflammation) RF: 0 clonazepam 1 mg tablet 0.5 - 1 mg PO BID PRN (Reason: Anxiety) RF: 0 finasteride 5 mg tablet 5 mg PO DAILY RF: 0 levothyroxine 75 mcg capsule 75 mcg PO DAILY RF: 0 tamsulosin 0.4 mg capsule 0.4 mg PO BID RF: 0 hydrocodone-acetaminophen 10-325 mg tablet See Rx Instructions .ROUTE .COMPLEX PRN (Reason: Pain) RF: 0 ondansetron HCl [Zofran] 4 mg tablet 4 mg PO Q4H PRN (Reason: Nausea) RF: 0 fluticasone propionate [Flonase Allergy Relief] 50 mcg/actuation spray,suspension 1 spray INTRANASAL BID RF: 0 azithromycin 250 mg Tablet See Rx Instructions .ROUTE .COMPLEX RF: 0 amitriptyline 25 mg Tablet See Rx Instructions .ROUTE .COMPLEX RF: 0 aspirin [Aspir-81] 81 mg Tablet,Delayed Release (Dr/Ec) 81 mg PO DAILY RF: 0 omega 7-uyi-eeb-fish oil [Fish Oil] 1,000 mg (120 mg-180 mg) Capsule 1 cap PO DAILY RF: 0 prednisone 5 mg tablet 5 - 10 mg PO DAILY Qty: 0 RF: 0 Changed atorvastatin 20 mg tablet 40 mg PO DAILY 30 Days Qty: 30 RF: 0 Discontinued metoprolol tartrate 25 mg Tablet 12.5 mg PO BID RF: 0 Discharge Orders: Discharge Order (Routine); Ordered 05/04/19 Ordered By: Zacarias Dave Other Ambulatory Orders: Complete Blood Count w/Auto (Routine) Timeframe: 1 Week Location: Determined by Patient Ordered By: Zacarias Dave Referrals: Farhad Ray MD [Physician] - 1 month (You have a cardiology followup with Dr. Ray at [facility] on June 16 at 2:00pm. Any appointment changes, please call them at [phone]) Abi Sharma MD [Physician] - 1 month (You have a pulmonary followup with Dr. Sharma at [facility] on May 31 at 10:00am. Any appointment changes, please call them at [phone]) Jean Anderson APN [Primary Care Provider] - 1 week (You have a hospital followup with Monica Pena APN at [facility] on May 10 at 11:00am. Any appointment changes, please give them a call at [phone]) Discharge Diet: Regular Discharge Activity: Resume usual activity Patient Instructions: Anticoagulation Therapy, Apixaban (By mouth), Atrial Fibrillation (DC), How to Stop Smoking (DC), Chronic Obstructive Pulmonary Disease (DC) Activity Restrictions/Additional Instructions: -Please use home trilogy machine as prescribed -Please use inhalers as prescribed -Please use steroid taper and doxycycline as prescribed -For your paroxysmal atrial fibrillation, use metoprolol as prescribed -As you are being placed on Eliquis, monitor for bloody or black stools and if so come to the emergency room, check hemoglobin in 1 week -Please follow-up with cardiology as outpatient, will need Holter monitor to evaluate paroxysmal A. fib Discharge Attestations Time Spent in Discharge Care*: less than 30 min Quality Metrics Clinical Quality Measures During this hospital stay, did patient experience: None Coding Level of Care Code Acute Licensing Analyst for Vannesa Velasquez Diagnoses Acute hypercapnic respiratory failure J96.02 Transient ischemic attack G45.9 Atrial fibrillation with RVR I48.91 Closed compression fracture of L1 vertebra S32.010A Encounter type: initial encounter Closed wedge compression fracture of T10 vertebra S22.070A Encounter type: initial encounter Fall W19.XXXA Encounter type: initial encounter Hypertension I10 Hyperlipidemia E78.5
== END 2019-05-04 17:59 | disposition home or self-care (01) | DRG 189 ==
LOC: ER 14:26 → CSU 16:59
PROVIDERS: Admitting Provider Family Medicine; Emergency Provider Emergency Medicine; Family Provider Family Medicine; PCP Nurse Practitioner Family; Visit Provider Family Medicine
DX: J96.02 Acute respiratory failure with hypercapnia (principal); G45.9 Transient cerebral ischemic attack, unspecified; J96.11 Chronic respiratory failure with hypoxia; J44.9 Chronic obstructive pulmonary disease, unspecified; Z99.81 Dependence on supplemental oxygen; M48.56XG Collapsed vertebra, not elsewhere classified, lumbar region, subsequent encounter for fracture with delayed healing; E03.9 Hypothyroidism, unspecified; I48.91 Unspecified atrial fibrillation; E78.5 Hyperlipidemia, unspecified; I10 Essential (primary) hypertension; F17.210 Nicotine dependence, cigarettes, uncomplicated; R47.81 Slurred speech; Z79.52 Long term (current) use of systemic steroids; Z79.82 Long term (current) use of aspirin; Z79.01 Long term (current) use of anticoagulants
CPT/HCPCS: 12345; 36415; 36600; 70450; 71045; 71046; 71275; 72100; 80053; 80061; 81001; 82803; 83036; 83605; 83735; 83880; 84100; 84443; 84484; 85025; 85378; 85610; 87040; 87804; 92610; 93005; 93306; 93880; 94640; 94660; 96374; 96375; 97161; 97165; 97530; 99281; 99282; A9270; J2920; J2930; J3490; J7030; J7050; Q9967

== ENCOUNTER 2019-05-12 07:22 | Outpatient (RCR) | payer MEDICARE, MEDICAID, SELFPAY | END 2019-06-05 23:59 | disposition home or self-care (01) | LOC: PULRHB 07:22 | PROVIDERS: Family Provider Family Medicine; PCP Nurse Practitioner Family; Visit Provider Family Medicine | DX: Z01.89 Encounter for other specified special examinations (principal) ==

== ENCOUNTER 2019-06-09 11:17 | Outpatient (CLI) | payer MEDICARE, MEDICAID, SELFPAY | END 2019-06-09 11:18 | disposition home or self-care (01) | LOC: RT 11:19 | PROVIDERS: Family Provider Family Medicine; PCP Nurse Practitioner Family; Visit Provider Internal Medicine Critical Care Medicine | DX: J44.9 Chronic obstructive pulmonary disease, unspecified (principal) | CPT/HCPCS: 94060; 94726; 94729; J7611 ==

== ENCOUNTER 2019-07-26 13:56 | Outpatient (CLI) | payer MEDICARE, MEDICAID, SELFPAY ==
[2019-07-26 14:09] VITALS: BP 103/67; PULSE 68; RESP 16; TEMP 36.7; O2SAT 92
[2019-07-26] MEDS: denosumab 60 mg SDV SUBCUT (14:16)
[2019-07-26 14:43] VITALS: BP 124/70; PULSE 75; RESP 16; TEMP 36.9; O2SAT 94
== END 2019-07-26 13:57 | disposition home or self-care (01) ==
LOC: RHEOACUTE 13:57
PROVIDERS: Family Provider Family Medicine; PCP Nurse Practitioner Family; Visit Provider Internal Medicine Rheumatology
DX: M81.0 Age-related osteoporosis without current pathological fracture (principal)
CPT/HCPCS: 96372; J0897

== ENCOUNTER 2019-08-26 13:55 | Outpatient (CLI) | payer MEDICARE, MEDICAID, SELFPAY ==
--- NOTE | 2019-08-26 14:01 | XRR_ITS ---
PROCEDURE INFORMATION: Exam: XR Chest, 2 Views Exam date and time: 08/26/2019 2:01 PM Age: 74 years old Clinical indication: Chest pain; Type not specified TECHNIQUE: Imaging protocol: XR of the chest Views: 2 views. COMPARISON: CR XR chest 1V portable [id number] 05/02/2019 1:38 PM FINDINGS: Lungs: Calcified granuloma in the right upper lobe. No pneumonia or pulmonary edema. The lungs are hyperinflated with flattening of the hemidiaphragms compatible with COPD. Pleural space: No pleural effusion or pneumothorax. Heart/Mediastinum: The cardiac silhouette is not enlarged. The mediastinal contours are normal. Vasculature: The thoracic aorta is atherosclerotic. Bones/joints: There are multilevel bridging osteophytes in the spine. Soft tissues: There are bilateral epicardial fat pads. Right rotator cuff calcific tendinitis. Nipple shadows project over both lung bases. XR/XR chest 2V* [id number] IMPRESSION: No acute abnormality.
[2019-08-26 14:54] LABS: Anion Gap 13.1 (5-19); Blood Urea Nitrogen 16 mg/dL (8-23); Carbon Dioxide 33 mmol/L (22-29); Chloride 100 mmol/L (98-107); Glucose 108 mg/dL (65-115); Osmolality Calculated 291 mOsm/kg (285-295); Potassium 4.1 mmol/L (3.5-5.1); Sodium 142 mmol/L (136-145)
== END 2019-08-26 13:56 | disposition home or self-care (01) ==
LOC: RAD 13:59
PROVIDERS: PCP Nurse Practitioner Family; Visit Provider Internal Medicine Critical Care Medicine
DX: R07.9 Chest pain, unspecified (principal); J44.9 Chronic obstructive pulmonary disease, unspecified
CPT/HCPCS: 36415; 71046; 80048

== ENCOUNTER 2019-09-06 06:00 | Outpatient (RCR) | payer MEDICARE, MEDICAID, SELFPAY | END 2019-10-05 23:59 | disposition home or self-care (01) | LOC: PULRHB 06:00 | PROVIDERS: PCP Nurse Practitioner Family; Visit Provider Family Medicine | DX: J44.9 Chronic obstructive pulmonary disease, unspecified (principal) | CPT/HCPCS: G0424 ==

== ENCOUNTER → 2019-09-20 08:19 | Outpatient (BNVA) | payer MEDICARE, MEDICAID, SELFPAY | PROVIDERS: PCP Nurse Practitioner Family; Visit Provider Urology | DX: R97.20 Elevated prostate specific antigen [PSA] (principal) | CPT/HCPCS: 81001 ==

== ENCOUNTER 2019-10-06 06:00 | Outpatient (RCR) | payer MEDICARE, MEDICAID, SELFPAY | END 2019-11-05 23:59 | disposition home or self-care (01) | LOC: PULRHB 06:00 | PROVIDERS: PCP Nurse Practitioner Family; Visit Provider Family Medicine | DX: J20.9 Acute bronchitis, unspecified (principal); J44.0 Chronic obstructive pulmonary disease with (acute) lower respiratory infection | CPT/HCPCS: G0424 ==

== ENCOUNTER 2020-03-13 10:12 | Outpatient (CLI) | payer MEDICARE, MEDICAID, SELFPAY ==
[2020-03-13 10:21] VITALS: BP 115/71; PULSE 86; RESP 16; TEMP 36.9; O2SAT 96; BMI 22.8
[2020-03-13] MEDS: denosumab 60 mg SDV SUBCUT (10:29)
[2020-03-13 10:32] VITALS: BP 113/64; PULSE 84; RESP 16; TEMP 36.7; O2SAT 93
--- NOTE | 2020-03-13 10:46 | PC.NURSE ---
Reviewed medication list. States he's also on Yupelri nebulizer once a day. Declined copy of medication list at this time.
== END 2020-03-13 10:13 | disposition home or self-care (01) ==
LOC: RHEOACUTE 10:13
PROVIDERS: PCP Nurse Practitioner Family; Visit Provider Internal Medicine Rheumatology
DX: M81.0 Age-related osteoporosis without current pathological fracture (principal)
CPT/HCPCS: 96372; J0897

== ENCOUNTER → 2020-04-13 12:55 | Outpatient (BNVA) | payer MEDICARE, MEDICAID, SELFPAY | PROVIDERS: PCP Nurse Practitioner Family; Visit Provider Podiatrist Foot & Ankle Surgery | DX: M79.671 Pain in right foot (principal); M79.672 Pain in left foot; M21.612 Bunion of left foot; M21.611 Bunion of right foot | CPT/HCPCS: 73630 ==

== ENCOUNTER 2020-05-23 09:41 | Emergency (ER) | payer MEDICARE, MEDICAID, SELFPAY ==
[2020-05-23 09:42] VITALS: BP 131/82; PULSE 117; RESP 16; TEMP 36.5; O2SAT 94; BMI 23.2
--- NOTE | 2020-05-23 09:59 | XR_ITS ---
WS: [id number] PORTABLE CHEST HISTORY: dyspnea/cough COMPARISON: 08/26/2019 Mild pulmonary hyperexpansion. Possible 10 mm noncalcified nodule in the LEFT lower lung field. No pl eural effusion or pneumothorax. Cardiac size: Normal. Mediastinum/Aorta: Mild atherosclerosis aorta. No osseous abnormality seen. XR/XR chest 1V portable [id number] IMPRESSION: 1. No pneumonia. 2. Possible 10 mm noncalcified nodule in the LEFT lower lobe. Recommend follow -up chest CT with IV contrast.
[2020-05-23 10:00] VITALS: BP 136/73; PULSE 122; RESP 34; O2SAT 93
--- NOTE | 2020-05-23 10:00 | ECG_ITS ---
[facility] Test Date: 2020-05-23 Pat Name: Marko Gupta Department: Room: Gender: Male Taper Machine: : [id number] Requested By: Ge Butler Order Number: [id number] Joseph MD: Dolores Jordan M.D. Measurements Intervals [place] Rate: 115 P: 86 IL: 156 QRS: 102 QRSD: 140 T: 66 QT: 337 QTc: 467 Interpretive Statements SINUS TACHYCARDIA WITH ARTIFACT MARKED RIGHT AXIS DEVIATION [QRS AXIS > 100] RIGHT BUNDLE BRANCH BLOCK [120+ ms QRS DURATION, UPRIGHT V1, 40+ ms S IN I/aVL/V4/V5/V6] Compared to ECG 05/02/2019 20:45:06 Ventricular premature complex(es) now present Right-axis deviation now present Sinus rhythm no longer present Electronically Signed On 05-23-2020 17:48:35 COUNCILPERSON by Dolores Jordan M.D. [email or web address]
--- NOTE | 2020-05-23 10:11 | W.ED.ANXIETY ---
HPI - Anxiety General: Chief Complaint: Anxiety Stated Complaint: ANXIETY Time Seen by Provider: 05/23/20 09:50 History of Present Illness: HPI narrative: 75-year-old male presents emergency room with complaint of anxiety attack. Patient is at home was monitoring his oxygen and it was reading 70% he bumped his oxygen level up and called the ambulance. He was minimally short of breath below this. By the time the ambulance arrived and warm his hands up he had normal oxygen sats, here he is on 3 L/min and has a normal oxygen sat in the low and mid 90s. Patient denies chest pain change in baseline cough. He states he feels fine now he thinks he mostly just panicked. MD complaint: anxiety Onset (ago): minute(s) Symptoms: sense of impending doom and other (Low oxygen sat reading on home monitor) Place: home History of similar episodes: Yes Relieving factors: nothing Exacerbating factors: nothing Associated symptoms: Deny anorexia, chest pain, chills, confusion, diaphoresis, fever(s), headache(s), malaise, nausea, palpitations, short of breath, syncope, vomiting or weakness Review of Systems Const: Denies: fever(s), malaise or diaphoresis ENMT: Denies: throat pain, ear or mastoid pain, nasal discharge or nasal congestion Card: Denies: chest pain, palpitations or syncope Resp: Denies: dyspnea, productive cough or non-productive cough GI: Denies: nausea or vomiting : Denies: flank pain, dysuria, urinary frequency or urinary urgency Skin/Breast: Denies: rash or pruritus Neuro: Denies: headache(s) or confusion [facility] PFSH: Medical History (Updated 05/23/20 @ 11:44 by Ge Wayne DO) Anticoagulation adequate with anticoagulant therapy Eliquis Compression fracture of body of thoracic vertebra COPD (chronic obstructive pulmonary disease) Dyspnea Elevated PSA Erectile dysfunction Hypoxia Oxygen dependent Surgical History H/O foot surgery H/O rotator cuff surgery Family History Other CAD (coronary artery disease) Diabetes Stroke Social History Smoking and tobacco status: current every day smoker cigarettes Years cigarettes smoked: 60 [ Other cigarette details: Hx of 1 PPD x 60 Years ] Quit status (tobacco): considering quitting Smoking risk assessment/counseling performed?: Yes Alcohol intake: never Lives independently: Yes Household members: none Marital status: Single Current occupational status: retired History of recent travel: No Current gender identity: Male Physical Exam Const: COMMON NORMALS: no acute distress GENERAL APPEARANCE: cooperative and comfortable ORIENTATION/CONSCIOUSNESS: Yes awake, Yes oriented to person, Yes oriented to place and Yes oriented to time HENMT: COMMON NORMALS: normocephalic, atraumatic and hearing grossly normal bilaterally HEAD & SCALP: normocephalic and atraumatic Neck/C-Spine: COMMON NORMALS: no JVD Resp: COMMON NORMALS: normal respiratory effort, No retractions and No use of accessory muscles AUSCULTATION: wheezes Cardio: COMMON NORMALS: no JVD, regular rate, regular rhythm and No murmurs present (Cardio) RATE: regular rate RHYTHM: regular rhythm GI: COMMON NORMALS: Soft to palpation and No hepatosplenomegaly present AUSCULTATION: Yes normoactive bowel sounds PALPATION: Yes Soft to palpation, No Tenderness to palpation present (GI), No Guarding due to palpation present (GI) and Yes No hepatosplenomegaly present Extremity: COMMON NORMALS: normal to inspection, capillary refill normal, no clubbing, cyanosis or edema, no calf tenderness and no pedal edema Neuro: SENSORIUM/ORIENTATION: Yes oriented to person, Yes oriented to place and Yes oriented to time Skin: COMMON NORMALS: no rashes or lesions noted GENERAL SKIN EXAM: no rashes or lesions noted Course Vital Signs: Vital signs: Vital Signs Temperature 97.7 F 05/23/20 09:42 Pulse Rate 111 H 05/23/20 11:39 Respiratory Rate 18 05/23/20 12:21 Blood Pressure 140/67 05/23/20 11:39 Pulse Oximetry 98 05/23/20 11:39 MDM - Anxiety MDM Narrative: Medical decision making narrative: Patient is doing better he is symptoms have completely resolved he feels he had a panic attack to think some of it was his COPD. Reviewed the findings he prefer to go home we will discharge him home have him use prednisone 60 mg daily for 5 days albuterol as needed follow-up as needed if has any worsening symptoms Lab Data: Labs: Lab Results 05/23/20 05/23/20 05/23/20 Range/Units 10:04 10:04 10:04 WBC 11.7 H (4.0-10.0) 10^3/ uL RBC 4.40 (4.1-5.3) 10^6/u L Hgb 12.3 (11.7-16.6) g/dL Hct 41.2 L (42.0-52.0) % MCV 93.6 (80-94) fL MCH 28.0 (28.0-34.0) pg MCHC 29.9 L (30.0-36.0) g/dL RDW 13.2 (12.1-15.1) % Plt Count 241 (130-400) 10^3/c mm MPV 8.9 (7.4-10.4) fL Neut % (Auto) 75.3 % Lymph % (Auto) 9.1 % [place] % (Auto) 12.5 % Eos % (Auto) 2.5 % Baso % (Auto) 0.3 % Neut # (Auto) 8.77 H (1.8-7.7) 10^3/u L Lymph # (Auto) 1.1 (0.8-4.8) 10^3/u L [place] # (Auto) 1.5 H (0.2-0.9) 10^3/u L Eos # (Auto) 0.3 (0.0-0.8) 10^3/u L Baso # (Auto) 0.0 (0.0-0.1) 10^3/u L Nucleated RBC % (a uto) 0 % Nucleated RBCs # 0.0 /100WBC Specimen Type Arterial Sample Site Brachial, left ABG pH 7.37 (7.35-7.45) ABG pCO2 72.0 H* (35-45) mmHg ABG pO2 66.6 L (80.0-100.0) mmH g ABG HCO3 41.2 H (22-26) mmol/L ABG O2 Saturation 96.0 ABG Base Excess 12.8 H (-2.0-2.0) mmol/ L Donnie Test Pos A-a O2 Gradient Not Reportable Hematocrit 39.1 L (42-52) % Hgb O2 Saturation 93.5 L (95-100) % Carboxyhemoglobin 1.8 (0.4-20.1) %THgb Methemoglobin 0.8 (0.4-1.5) % Total Hemoglobin 12.7 L (14-18) g/dL Sodium 136 143.0 (131-143) mmol/L Potassium 3.9 3.9 (3.5-5.0) mmol/L Glucose 116 H 119.0 H (70-115) mg/dL Ionized Calcium 1.2 (1.1-1.4) mmol/L O2 Delivery Device Nc O2 Liters/Min 3.0 % FiO2 0.0 % Data Integrity Specialist ID Cak Chloride 94 L (98-107) mmol/L Carbon Dioxide 36 H (22-29) mmol/L Anion Gap 9.9 (5-19) BUN 12 (8-23) mg/dL Creatinine 0.4 L (0.7-1.2) mg/dL GFR Calculation Not Reportable Calculated Osmolal ity 283 L (285-295) mOsm/k g Calcium 9.0 (8.5-10.5) mg/dL Total Bilirubin 0.2 (0.15-1.2) mg/dL AST 13 (0-40) U/L ALT 12 (0-41) U/L Alkaline Phosphata se 102 (40-130) IU/L Total Protein 7.4 (6.6-8.7) g/dL Albumin 3.6 (3.5-5.2) g/dL Globulin 3.8 (1.3-4.6) g/dL 05/23/20 Range/Units 11:24 WBC (4.0-10.0) 10^3/ uL RBC (4.1-5.3) 10^6/u L Hgb (11.7-16.6) g/dL Hct (42.0-52.0) % MCV (80-94) fL MCH (28.0-34.0) pg MCHC (30.0-36.0) g/dL RDW (12.1-15.1) % Plt Count (130-400) 10^3/c mm MPV (7.4-10.4) fL Neut % (Auto) % Lymph % (Auto) % [place] % (Auto) % Eos % (Auto) % Baso % (Auto) % Neut # (Auto) (1.8-7.7) 10^3/u L Lymph # (Auto) (0.8-4.8) 10^3/u L [place] # (Auto) (0.2-0.9) 10^3/u L Eos # (Auto) (0.0-0.8) 10^3/u L Baso # (Auto) (0.0-0.1) 10^3/u L Nucleated RBC % (a uto) % Nucleated RBCs # /100WBC Specimen Type Arterial Sample Site Radial, left ABG pH 7.37 (7.35-7.45) ABG pCO2 71.7 H* (35-45) mmHg ABG pO2 88.4 (80.0-100.0) mmH g ABG HCO3 41.5 H (22-26) mmol/L ABG O2 Saturation 97.9 ABG Base Excess 13.1 H (-2.0-2.0) mmol/ L Donnie Test Pos A-a O2 Gradient Not Reportable Hematocrit 38.8 L (42-52) % Hgb O2 Saturation 95.6 (95-100) % Carboxyhemoglobin 1.7 (0.4-20.1) %THgb Methemoglobin 0.7 (0.4-1.5) % Total Hemoglobin 12.7 L (14-18) g/dL Sodium 141.0 (131-143) mmol/L Potassium 3.8 (3.5-5.0) mmol/L Glucose 112.0 (70-115) mg/dL Ionized Calcium 1.2 (1.1-1.4) mmol/L O2 Delivery Device Nc O2 Liters/Min 2.0 % FiO2 % Data Integrity Specialist ID Cak Chloride (98-107) mmol/L Carbon Dioxide (22-29) mmol/L Anion Gap (5-19) BUN (8-23) mg/dL Creatinine (0.7-1.2) mg/dL GFR Calculation Calculated Osmolal ity (285-295) mOsm/k g Calcium (8.5-10.5) mg/dL Total Bilirubin (0.15-1.2) mg/dL AST (0-40) U/L ALT (0-41) U/L Alkaline Phosphata se (40-130) IU/L Total Protein (6.6-8.7) g/dL Albumin (3.5-5.2) g/dL Globulin (1.3-4.6) g/dL Discharge Plan Discharge Patient Disposition: Home Clinical Impression: COPD (chronic obstructive pulmonary disease) Condition: Stable Prescriptions: New prednisone 20 mg tablet 60 mg PO DAILY Qty: 15 RF: 0 albuterol sulfate 90 mcg/actuation HFA aerosol inhaler 2 inh INHALATION Q4H PRN (Reason: shortness of breath or wheezing) Qty: 18 RF: 0 No Action Eliquis 5 mg tablet 5 mg PO BID RF: 0 albuterol sulfate 2.5 mg /3 mL (0.083 %) solution for nebulization 2.5 mg INHALATION QID PRN (Reason: Shortness Of Breath) RF: 0 levalbuterol tartrate [Xopenex HFA] 45 mcg/actuation HFA aerosol inhaler 2 inh INHALATION QID RF: 0 celecoxib 200 mg capsule 200 mg PO DAILY PRN (Reason: Inflammation) RF: 0 clonazepam 1 mg tablet 0.5 - 1 mg PO BID PRN (Reason: Anxiety) RF: 0 levothyroxine 75 mcg capsule 75 mcg PO DAILY RF: 0 hydrocodone-acetaminophen 10-325 mg tablet See Rx Instructions .ROUTE .COMPLEX PRN (Reason: Pain) RF: 0 ondansetron HCl [Zofran] 4 mg tablet 4 mg PO Q4H PRN (Reason: Nausea) RF: 0 fluticasone propionate [Flonase Allergy Relief] 50 mcg/actuation spray,suspension 1 spray INTRANASAL BID RF: 0 cetirizine 10 mg tablet 5 mg PO DAILY PRNRF: 0 tamsulosin 0.4 mg capsule 0.4 mg PO BID Qty: 60 RF: 12 finasteride 5 mg tablet 5 mg PO DAILY Qty: 30 RF: 12 budesonide [Pulmicort] 0.5 mg/2 mL suspension for nebulization 0.5 mg INHALATION BID Qty: 120 RF: 3 Perforomist 20 mcg/2 mL solution for nebulization 2 ml INHALATION BID Qty: 120 RF: 3 revefenacin 175 mcg/3 mL solution for nebulization 175 mcg INHALATION DAILY Qty: 90 RF: 3 amitriptyline 25 mg Tablet See Rx Instructions .ROUTE .COMPLEX RF: 0 omega 7-kzl-gty-fish oil [Fish Oil] 1,000 mg (120 mg-180 mg) Capsule 1 cap PO DAILY RF: 0 atorvastatin 20 mg tablet 40 mg PO DAILY 30 Days Qty: 30 RF: 0 Discharge Orders: Discharge ED (Routine); Ordered 05/23/20 Ordered By: Ge Wayne Referrals: Monica Pena APN [Primary Care Provider] - Discharge Diet: Usual diet Discharge Activity: Resume usual activity Patient Instructions: Opioid Safety Coding Level of Care Code ED Blindstitch Lining Feller for Vannesa Fwd Exam Comprehensive
[2020-05-23 10:13] LABS: Basophils % 0.3 %; Eosinophils # 0.3 10^3/uL (0.0-0.8); Eosinophils % 2.5 %; Hematocrit 41.2 % (42.0-52.0); Hemoglobin 12.3 g/dL (11.7-16.6); Lymphocytes # 1.1 10^3/uL (0.8-4.8); Lymphocytes % 9.1 %; Mean Corpuscular HGB Conc 29.9 g/dL (30.0-36.0); Mean Corpuscular Volume 93.6 fL (80-94); Mean Platelet Volume 8.9 fL (7.4-10.4); Monocytes # 1.5 10^3/uL (0.2-0.9); Monocytes % 12.5 %; Neutrophils # 8.77 10^3/uL (1.8-7.7); Neutrophils % 75.3 %; Nucleated Red Blood Cells % 0 %; Platelet Count 241 10^3/cmm (130-400); Red Cell Distribution Width 13.2 % (12.1-15.1); White Blood Count 11.7 10^3/uL (4.0-10.0)
[2020-05-23 10:16] LABS: ABG PH Result 7.37 (7.35-7.45); Arterial Blood Gas Hematocrit 39.1 % (42-52); Base Excess ABG 12.8 mmol/L (-2.0-2.0); Blood Gas Allen Test Pos; Blood Gas Operator Identificat CAK; Blood Gas Sample Site Brachial, left; Blood Gas Sample Type Arterial; Carboxyhemoglobin 1.8 %THgb (0.4-20.1); HCO3 ABG 41.2 mmol/L (22-26); HGB O2 Sat 93.5 % (95-100); Ionized Calcium Level - ABG 1.2 mmol/L (1.1-1.4); Methemoglobin 0.8 % (0.4-1.5); Oxygen Device NC; PO2 ABG 66.6 mmHg (80.0-100.0); Potassium Level - ABG 3.9 mmol/L (3.5-5.0); Total Hemoglobin 12.7 g/dL (14-18)
[2020-05-23 10:27] VITALS: BP 137/68; PULSE 115; RESP 30; O2SAT 97
[2020-05-23 10:41] LABS: Alanine Aminotransferase 12 U/L (0-41); Albumin Level 3.6 g/dL (3.5-5.2); Alkaline Phosphatase 102 IU/L (40-130); Anion Gap 9.9 (5-19); Aspartate Amino Transferase 13 U/L (0-40); Blood Urea Nitrogen 12 mg/dL (8-23); Carbon Dioxide 36 mmol/L (22-29); Chloride 94 mmol/L (98-107); Globulin 3.8 g/dL (1.3-4.6); Glucose 116 mg/dL (65-115); Osmolality Calculated 283 mOsm/kg (285-295); Potassium 3.9 mmol/L (3.5-5.1); Sodium 136 mmol/L (136-145); Total Bilirubin 0.2 mg/dL (0.15-1.2); Total Protein 7.4 g/dL (6.6-8.7)
[2020-05-23 11:35] LABS: ABG PH Result 7.37 (7.35-7.45); Arterial Blood Gas Hematocrit 38.8 % (42-52); Base Excess ABG 13.1 mmol/L (-2.0-2.0); Blood Gas Allen Test Pos; Blood Gas Operator Identificat CAK; Blood Gas Sample Site Radial, left; Blood Gas Sample Type Arterial; Carboxyhemoglobin 1.7 %THgb (0.4-20.1); HCO3 ABG 41.5 mmol/L (22-26); HGB O2 Sat 95.6 % (95-100); Ionized Calcium Level - ABG 1.2 mmol/L (1.1-1.4); Methemoglobin 0.7 % (0.4-1.5); Oxygen Device NC; Oxygen Saturation ABG 97.9; PO2 ABG 88.4 mmHg (80.0-100.0); Potassium Level - ABG 3.8 mmol/L (3.5-5.0); Total Hemoglobin 12.7 g/dL (14-18)
[2020-05-23 11:36] LABS: ABG PCO2 71.7 mmHg (35-45)
[2020-05-23 11:39] VITALS: BP 140/67; PULSE 111; RESP 35; O2SAT 98
[2020-05-23 12:21] VITALS: RESP 18
== END 2020-05-23 12:29 | disposition home or self-care (01) ==
PROVIDERS: Emergency Provider Family Medicine; PCP Nurse Practitioner Family
DX: J44.9 Chronic obstructive pulmonary disease, unspecified (principal); Z79.01 Long term (current) use of anticoagulants; Z99.81 Dependence on supplemental oxygen; F17.210 Nicotine dependence, cigarettes, uncomplicated
CPT/HCPCS: 36415; 36600; 71045; 80051; 80053; 82330; 82805; 85025; 93005; 99283

== ENCOUNTER 2020-09-08 11:33 | Outpatient (CLI) | payer MEDICARE, MEDICAID, SELFPAY ==
--- NOTE | 2020-09-08 11:45 | XR_ITS ---
WS: [id number] Chest 2 views, 09/08/2020 Clinical Data: COPD W/AE COUGH Comparison: Portable chest, 05/23/2020. Findings: No nodules, masses or effusions are seen. The heart is normal. The pulmonary vascularity is not increased. No pneumonia or pneumothorax is seen. The diaphragms are flattened. The aortic arch a nd descending aorta show mild tortuosity. XR/XR chest 2V* [id number] Impression: Atherosclerosis and hyperinflation.
== END 2020-09-08 11:34 | disposition home or self-care (01) ==
LOC: RAD 11:41
PROVIDERS: PCP Nurse Practitioner Family; Visit Provider Nurse Practitioner Family
DX: J44.9 Chronic obstructive pulmonary disease, unspecified (principal); R05 Cough; I70.90 Unspecified atherosclerosis
CPT/HCPCS: 71046

== ENCOUNTER → 2020-09-18 15:20 | Outpatient (BNVA) | payer MEDICARE, MEDICAID, SELFPAY | PROVIDERS: PCP Nurse Practitioner Family; Visit Provider Internal Medicine | DX: I48.91 Unspecified atrial fibrillation (principal); R06.02 Shortness of breath; I10 Essential (primary) hypertension | CPT/HCPCS: 83880 ==

== ENCOUNTER 2020-10-19 12:16 | Outpatient (CLI) | payer MEDICARE, MEDICAID, SELFPAY ==
--- NOTE | 2020-10-19 12:45 | USCV_ITS ---
Marko Gupta Age: 75 Gender: M : 1945 Exam Date: 10/19/2020 12:31 Ordering Phys: Andrey Perales M.D ([email or web address]) Technologist: Aspen Andrade Exam Location: [facility] – [place] Indication: shortness of breath BP: 118 / 77 HR: 78 Rhythm: Sinus Technical Quality: Adequate MEASUREMENTS (Male / Female) Normal Values 2D ECHO LV Diastolic Diameter PLAX 4.7 cm 4.2 - 5.9 / 3.9 - 5.3 cm LV Systolic Diameter PLAX 2.3 cm IVS Diastolic Thickness 0.8 cm 0.6 - 1.0 / 0.6 - 0.9 cm IVS Systolic Thickness 1.4 cm LVPW Diastolic Thickness 1.1 cm 0.6 - 1.0 / 0.6 - 0.9 cm LVPW Systolic Thickness 1.0 cm LVOT Diameter 2.1 cm LV Ejection Fraction 2D Teich 82.5 % LV Ejection Fraction MOD 2C 66.6 % LV Ejection Fraction 2C AL 70.1 % LA Diameter 2.2 cm LA Width 1.9 cm LA Height 4.8 cm RA Width 3.6 cm RA Height 3.5 cm Aorta at Sinotubular Diameter 3.3 cm M-MODE LV Diastolic Diameter MM 4.8 cm 4.2 - 5.9 / 3.9 - 5.3 cm IVS Diastolic Thickness MM 1.1 cm 0.6 - 1.0 / 0.6 - 0.9 cm LVPW Diastolic Thickness MM 1.1 cm 0.6 - 1.0 / 0.6 - 0.9 cm Aortic Annulus Diameter 2.9 cm LA Ao Ratio MM 0.8 MV E Point Septal Separation 0.7 cm DOPPLER AV Peak Velocity 113.0 cm/s LVOT Peak Velocity 88.0 cm/s AV Area Cont Eq vti 2.8 cm squared AV Area Cont Eq pk 2.8 cm squared MV Peak Velocity 104.0 cm/s MV Area PHT 4.2 cm squared Mitral E to A Ratio 0.7 MV E' Velocity 40.5 cm/s Mitral E to MV E' Ratio 8.7 Mitral E to LV E' Lateral Ratio 8.2 Mitral E to LV E' Septal Ratio 9.4 TR Peak Velocity 224.6 cm/s TR Peak Gradient 20.2 mmHg TR Mean Velocity 102.2 cm/s TR Mean Gradient 5.6 mmHg TR Velocity Time Integral 22.6 cm Right Atrial Pressure 3.0 mmHg Pulmonary Artery Systolic Pressu 23.2 mmHg PV Peak Velocity 120.0 cm/s RV Acceleration Time 0.1 s RV Ejection Time 0.3 s RV AcT/ET 0.4 FINDINGS Left Ventricle Normal left ventricular size. LV systolic function is normal with EF of 50-55%. No regional wall motion abnormalities. Septal motion consistent with conduction abnormality. Grade 1 diastolic dysfunction is noted Right Ventricle The right ventricle is normal in size and function. Right Atrium The right atrium is normal in size. Left Atrium The left atrium is normal in size. Mitral Valve Structurally normal mitral valve without significant stenosis or prolapse. There is trace mitral regurgitation. Aortic Valve Grossly normal without significant sclerosis or stenosis. There is no aortic regurgitation. Tricuspid Valve Structurally normal tricuspid valve without significant stenosis. Trace tricuspid regurgitation. Insufficient TR jet to calculate RVSP Pulmonic Valve Not well visualized Pericardium Normal pericardium without effusion. Aorta Normal ascending aorta dimension. CONCLUSIONS LV systolic function is normal with EF of 50-55% Grade 1 diastolic dysfunction Trace mitral regurgitation is noted Trace tricuspid regurgitation Compared to prior echocardiogram from 04/2019, no significant changes are noted Andrey Perales MD (Electronically Signed) Final Date: 30 October 2020 08:59 S
== END 2020-10-19 12:17 | disposition home or self-care (01) ==
LOC: US 12:17
PROVIDERS: PCP Nurse Practitioner Family; Visit Provider Internal Medicine
DX: R06.02 Shortness of breath (principal); I08.1 Rheumatic disorders of both mitral and tricuspid valves
CPT/HCPCS: 93306